=== PATIENT | male | born 1945 | race African-American/Black ===

== ENCOUNTER → 2017-03-02 | Outpatient (CLI) | payer MEDICARE, OTHER ==
--- NOTE | 2017-03-02 14:22 | RAD ---
APPROVED REPORT Test Type: Exercise Stress Nurse/Tech: Karly North R.N. Test Indications: Exertional dypsnea Cardiac History: HTN Medications: SEE EMR Medical History: SEE EMR Resting ECG: SR PVC's and PAC's Resting Heart Rate: 78 bpm Resting Blood Pressure: 135/72mmHg Pretest Chest Pain: No chest painNone Nurse/Tech Notes S1S2, lungs CTA, denied chest pain and SOA. Denied dizziness. Pt will attempt treadmill stress test d espite needing knee braces while exercising. Consent: The procedure was explained to the patient in lay terms. Informed consent was witnessed. Vahid eout was entered into [employer]. History and Stress Test performed by Karly North R.N. Stress Symptoms SOA. POST EXERCISE Reason for Termination: Reached target heart rate Target HR: Yes Max HR: 152 bpm 102% of Maximum Predicted HR: 148 bpm Exercise duration: 2:30 min:sec, 1 Stage Exercise capacity: 4.6METs Max Blood Pressure: 159/72mmHg Blood Pressure response to exercise: Normal blood pressure response during stress. Heart Rate response to exercise: Normal Chest Pain: No. Arrhythmia: Yes. PVC's and PAC's INTERPRETATION Stress EKG Conclusion: The baseline EKG shows a sinus rhythm with PACs and nonspecific ST segment med nges. The stress EKG shows no significant changes from baseline. No EKG evidence of stress-induced ischemia. Imaging Protocol IMAGE PROTOCOL: Rest Tc-99m/stress Tc-99m 1 day Rest: Stress: Viability: Radiopharm.Tc99m [id number] Sestamibi Dose10.1mCi 32i Img Date 03/02/2017 03/02/2017 Inj-Img [id number] 60min. Rest Admin Site:IV - Left AntecubitalAdministrator:LILLIAM Scott, ARRT (R)(N) Stress Admin Site: IV - Left AntecubitalAdministrator: Elidia Farnsworth, RT (R)(N) STRESS DATA End Diast. Vol.79.0mlAv. Heart Rate86.0bpm End Syst. Vol.23.0mlCO Index BSA0.0L/min Myocardial Whcd561.0gEject. Oqthvast88.0% Stress Rates Pk. Fill Rate3.16EDV/secLVtime Pk. Fill 146.17msec Pk. Empty Rate4.53ESV/secLVtime Pk. Giddn038.87msec 04/22 Pk. Fill1.65EDV/sec Stress Scores Regional WT0.00Summed WT5.00 Regional WM0.00Summed WM2.00 LV Perfusion The stress scans showed no significant defects. The rest scans showed no significant defects. Nuclear imaging shows no reversible ischemia or infarct. Wall Motion Normal left ventricular systolic function with an ejection fraction of greater than 70%. LV Perf. Quant 17 Seg. SSS3.00 17 Seg. SRS3.00 17 Seg. SDS0.00 Stress Defect Extent (% LAD)0.00Rest Defect Extent (% LAD)0.00Rev. Defect Extent (% LAD)0.00 Stress Defect Extent (% LCX) 21.30Rest Defect Extent (% LCX)20.00Rev. Defect Extent (% LCX)0.00 Stress Defect Extent (% RCA)0.00Rest Defect Extent (% RCA)3.30Rev. Defect Extent (% RCA)0.00 Stress Defect Extent (% JIHAN)5.20Rest Defect Extent (% JIHAN)6.50Rev. Defect Extent (% JIHAN)0.00 Conclusion 1. Fair exercise tolerance. 2. No chest pain with exertion. 3. No EKG evidence of stressed induced ischemia. 4. Nuclear imaging shows no reversible ischemia or infarct. 5. Normal left ventricular systolic function with an ejection fraction of greater than 70%. 6. Low risk treadmill nuclear stress test.
== END | disposition home or self-care (01) ==
LOC: NM 09:21
PROVIDERS: ATTEND Internal Medicine Cardiovascular Disease
DX: R06.00 Dyspnea, unspecified (principal)
CPT/HCPCS: 78452; 93017; 96374; 96376; A9500

== ENCOUNTER 2019-02-12 11:28 | Inpatient (IN) | payer MEDICARE, OTHER ==
[~2019-02-12] VITALS: Ht 167.6 cm; Wt 88.2 kg
--- NOTE | 2019-02-12 11:58 | PHYS DOC ---
Past Medical History Past Medical History: A-Fib, Diabetes-Type I, Hypertension Past Surgical History: Other Additional Past Surgical Histo: lower back Alcohol Use: None Drug Use: None Adult General Chief Complaint Chief Complaint: SYNCOPE HPI HPI 73-year-old male with underlying history of hypertension, atrial fibrillation, history of esophageal stricture presents to the emergency department after syncopal episode. Patient was at a and states he became hot and subsequently passed out, significant other at the bedside states is partly 1 minute. EMS was called however patient declined. He denies any chest pain, shortness breath, nausea, vomiting. States he's had a history of syncopal episodes in the past. Most recently he's had decreased oral intake over the last 3-4 weeks given concerns for esophageal stricture. Patient scheduled for evaluation per GI on Thursday. Nothing makes worse, nothing makes better. BS 140 Review of Systems Review of Systems Constitutional: Denies fever or chills [] Respiratory: Denies cough or shortness of breath [] Cardiovascular: No additional information not addressed in HPI [] GI: Denies abdominal pain, nausea, vomiting, bloody stools or diarrhea [] Musculoskeletal: Denies back pain or joint pain [] Integument: Denies rash or skin lesions [] Neurologic: Denies headache, focal weakness or sensory changes [] All other systems were reviewed and found to be within normal limits, except as documented in this note. Current Medications Current Medications Current Medications Medications (Trade) Dose Ordered Sig/Enrique Start Time Stop Time Status Last Admin Dose Admin Acetaminophen (Tylenol) 650 mg PRN Q4HRS PRN 02/12/19 13:15 02/13/19 13:14 Diltiazem HCl (Cardizem Iv Push) 10 mg 1X ONCE 02/12/19 12:00 02/12/19 12:01 DC 02/12/19 12:09 10 MG Info (CONTRAST GIVEN -- Rx MONITORING) 1 each PRN DAILY PRN 02/12/19 13:00 02/14/19 12:59 Iohexol (Omnipaque 350 Mg/ml) 90 ml 1X ONCE 02/12/19 13:00 02/12/19 13:01 DC 02/12/19 13:14 90 ML Ondansetron HCl (Zofran) 4 mg PRN Q8HRS PRN 02/12/19 13:15 02/13/19 13:14 Sodium Chloride 1,000 ml @ 1,000 mls/hr 1X ONCE 02/12/19 12:00 02/12/19 12:59 DC 02/12/19 12:10 1,000 MLS/HR Allergies Allergies Allergies Coded Allergies Type Severity Reaction Last Updated Verified No Known Drug Allergies 02/12/19 No Physical Exam Physical Exam Constitutional: Well developed, well nourished, no acute distress, non-toxic appearance. [] HENT: Normocephalic, atraumatic, bilateral external ears normal, oropharynx moist, no oral exudates, nose normal. [] Eyes: PERRLA, EOMI, conjunctiva normal, no discharge. [] Cardiovascular:Heart rate regular rhythm, no murmur [] Lungs & Thorax: Bilateral breath sounds clear to auscultation [] Abdomen: Bowel sounds normal, soft, no tenderness, no masses, no pulsatile masses. [] Skin: Warm, dry, no erythema, no rash. [] Extremities: No tenderness, no edema. [] Neurologic: Alert and oriented X 3, no focal deficits noted. [] Psychologic: Affect normal, judgement normal, mood normal. [] Current Patient Data Vital Signs Vital Signs Date Time Temp Pulse Resp B/P (MAP) Pulse Ox O2 Delivery O2 Flow Rate FiO2 02/12/19 12:09 138 150/67 02/12/19 12:00 18 96 Room Air 02/12/19 11:33 97.7 97.7 Lab Values Laboratory Tests Test 02/12/19 11:45 02/12/19 12:04 Glucose (Fingerstick) 144 mg/dL (70-99) H White Blood Count 19.6 x10^3/uL (4.0-11.0) H Red Blood Count 4.04 x10^6/uL (4.30-5.70) L Hemoglobin 12.3 g/dL (13.0-17.5) L Hematocrit 37.5 % (39.0-53.0) L Mean Corpuscular Volume 93 fL (79-100) Mean Corpuscular Hemoglobin 31 pg (25-35) Mean Corpuscular Hemoglobin Concent 33 g/dL (31-37) Red Cell Distribution Width 13.5 % (11.5-14.5) Platelet Count 455 x10^3/uL (140-400) H Neutrophils (%) (Auto) 86 % (31-73) H Lymphocytes (%) (Auto) 5 % (24-48) L Monocytes (%) (Auto) 8 % (0-9) Eosinophils (%) (Auto) 0 % (0-3) Basophils (%) (Auto) 1 % (0-3) Neutrophils # (Auto) 16.9 x10^3/uL (1.8-7.7) H Lymphocytes # (Auto) 0.9 x10^3/uL (1.0-4.8) L Monocytes # (Auto) 1.6 x10^3/uL (0.0-1.1) H Eosinophils # (Auto) 0.1 x10^3/uL (0.0-0.7) Basophils # (Auto) 0.1 x10^3/uL (0.0-0.2) Segmented Neutrophils % 63 % (35-66) Band Neutrophils % 9 % (0-9) Lymphocytes % 14 % (24-48) L Atypical Lymphocytes % (Manual) 3 % (0-0) H Monocytes % 9 % (0-10) Metamyelocytes % 1 % (0-0) H Myelocytes % 1 % (0-0) H Platelet Estimate Increased (ADEQUATE) Large Platelets Few Giant Platelets Occ Polychromasia Slight D-Dimer (Tamra) 3.80 ug/mlFEU (0.00-0.50) H Sodium Level 138 mmol/L (136-145) Potassium Level 5.2 mmol/L (3.5-5.1) H Chloride Level 103 mmol/L (98-107) Carbon Dioxide Level 24 mmol/L (21-32) Anion Gap 11 (6-14) Blood Urea Nitrogen 19 mg/dL (8-26) Creatinine 1.7 mg/dL (0.7-1.3) H Estimated GFR (Cockcroft-Gault) 47.9 BUN/Creatinine Ratio 11 (6-20) Glucose Level 157 mg/dL (70-99) H Calcium Level 9.2 mg/dL (8.5-10.1) Magnesium Level 1.9 mg/dL (1.8-2.4) Total Bilirubin 2.0 mg/dL (0.2-1.0) H Aspartate Amino Transferase (AST) 35 U/L (15-37) Alanine Aminotransferase (ALT) 29 U/L (16-63) Alkaline Phosphatase 96 U/L (46-116) Troponin I Quantitative < 0.017 ng/mL (0.000-0.055) Total Protein 8.1 g/dL (6.4-8.2) Albumin 2.6 g/dL (3.4-5.0) L Albumin/Globulin Ratio 0.5 (1.0-1.7) L Laboratory Tests 02/12/19 12:04 Laboratory Tests 02/12/19 12:04 EKG EKG EKG reviewed, atrial fibrillation with RVR, left axis deviation, no evidence of acute ST elevation VA appreciated, urgency EKG secondary to A. fib with RVR[] Interpretation Time: Interpretation time 1145 Radiology/Procedures Radiology/Procedures [facility] [address] [place] [address] IMAGING REPORT Signed PATIENT: SANDRO LOPEZ ACCOUNT: [id number] : 1945 LOCATION: ER AGE: 73 SEX: M EXAM STATUS: REG ER ORD. PHYSICIAN: MALIA RAIN MD REASON: elevated ddimer, syncope PROCEDURE: CT ANGIOGRAPHY CHEST EXAM: CT ANGIOGRAPHY OF THE CHEST WITH AND WITHOUT CONTRAST. HISTORY: Syncope, elevated d-dimer. TECHNIQUE: Computed tomographic angiography of the chest was performed before and after the intravenous administration of iodinated contrast. 3-D maximum intensity projections were also performed. COMPARISON: None. FINDINGS: Images of the upper abdomen reveal multiple ill-defined hypoattenuating lesions within the liver concerning for metastatic disease. The largest on image 105 measures 3.3 cm. There is a moderate hiatal hernia. A soft tissue mass invading into the adjacent fat is suspected along the right aspect of the gastroesophageal junction. Gastrohepatic lymph nodes measure up to 2.2 x 1.2 cm. Bone windows reveal no suspicious lesions. No pulmonary emboli are identified. There is no aortic dissection or aneurysm. There are no pathologically enlarged mediastinal or axillary lymph nodes. There is no pleural or pericardial effusion. The heart is not enlarged. There are atherosclerotic calcifications of the coronary arteries. Lung windows reveal no infiltrates. There is mild dependent atelectasis. IMPRESSION: 1. Findings concerning for a mass at the gastroesophageal junction with invasion of the right paraesophageal fat. 2. Extensive hepatic metastatic disease. 3. No pulmonary embolism. *One or more of the following individualized dose reduction techniques were utilized for this examination: 1. Automated exposure control. 2. Adjustment of the mA and/or kV according to patient size. 3. Use of iterative reconstruction technique. Electronically signed by: Sera Montesinos MD (02/12/2019 1:23 PM) [facility] DICTATED and SIGNED BY: BRIELLE MONTESINOS MD DATE: 02/12/19 1323 [] Course & Med Decision Making Course & Med Decision Making Pertinent Labs and Imaging studies reviewed. (See chart for details) []73-year-old male with underlying history of hypertension, atrial fibrillation, history of esophageal stricture presents to the emergency department after syncopal episode. Patient was at a and states he became hot and subsequently passed out, significant other at the bedside states is partly 1 minute. EMS was called however patient declined. He denies any chest pain, shortness breath, nausea, vomiting. States he's had a history of syncopal episodes in the past. Most recently he's had decreased oral intake over the last 3-4 weeks given concerns for esophageal stricture. Patient scheduled for evaluation per GI on Thursday. Nothing makes worse, nothing makes better. BS 140 Labs reviewed mild [place] creat 1.7 CT findings concerning for esophageal thickening and lesions on the liver - further GI consult placed Patient will be admitted for further syncope workup and Cardiology consult Afib with RVR - improved after 10mg IV cardizem Dragon Disclaimer Dragon Disclaimer This electronic medical record was generated, in whole or in part, using a voice recognition dictation system. Departure Departure Impression: Primary Impression: Syncope and collapse Additional Impressions: Atrial fibrillation with RVR Dysphagia Abnormal CT of the abdomen Disposition: ADMITTED INPATIENT Admitting Physician: Torin Coronado Condition: STABLE Referrals: García DOMINGUEZ MD (PCP) Problem Qualifiers Additional Impressions: Dysphagia Dysphagia type: unspecified Qualified Codes: R13.10 - Dysphagia, unspecified MALIA RAIN MD Feb 12, 2019 11:58
[2019-02-12] MEDS ORDERED: dilTIAZem IV PUSH 25 MG/5 ML VIAL IVP ONE (12:00)
[2019-02-12] MEDS ORDERED: IV NORMAL SALINE 1000ML BAG 1,000 ML IV ONE (12:00)
[2019-02-12 12:20] LABS: BASO # 0.1 x10^3/uL (0.0-0.2); BASO % 1 % (0-3); EOS # 0.1 x10^3/uL (0.0-0.7); EOS % 0 % (0-3); HEMATOCRIT 37.5 % (39.0-53.0); HEMOGLOBIN 12.3 g/dL (13.0-17.5); LYMPH # 0.9 x10^3/uL (1.0-4.8); LYMPH % 5 % (24-48); MEAN CORPUSCULAR HEMOGLOBIN 31 pg (25-35); MEAN CORPUSCULAR HGB CONC 33 g/dL (31-37); MEAN CORPUSCULAR VOLUME 93 fL (79-100); MONO # 1.6 x10^3/uL (0.0-1.1); MONO % 8 % (0-9); NEUT # 16.9 x10^3/uL (1.8-7.7); NEUT % 86 % (31-73); PLATELET COUNT 455 x10^3/uL (140-400); RED BLOOD COUNT 4.04 x10^6/uL (4.30-5.70); RED CELL DISTRIBUTION WIDTH 13.5 % (11.5-14.5); WHITE BLOOD COUNT 19.6 x10^3/uL (4.0-11.0)
[2019-02-12 12:33] LABS: ALBUMIN 2.6 g/dL (3.4-5.0); ALBUMIN/GLOBULIN RATIO 0.5 (1.0-1.7); CALCIUM 9.2 mg/dL (8.5-10.1); CREATININE 1.7 mg/dL (0.7-1.3); GFR 47.9; TOTAL PROTEIN 8.1 g/dL (6.4-8.2)
[2019-02-12 12:36] LABS: POTASSIUM 5.2 mmol/L (3.5-5.1)
[2019-02-12 12:48] LABS: % BANDS 9 % (0-9); % METAS 1 % (0-0); % MONOS 9 % (0-10)
[2019-02-12 12:49] LABS: PLT ESTIMATE INCREASED (ADEQUATE); POLYCHROMASIA SLIGHT
[2019-02-12 12:50] LABS: % ATYL 3 % (0-0); % LYMPHS 14 % (24-48); % MYELOS 1 % (0-0); % SEGS 63 % (35-66)
[2019-02-12] MEDS ORDERED: IOHEXOL 350 MG/ML 100 ML VIAL. IV ONE (13:00)
[2019-02-12] MEDS ORDERED: CONTRAST GIVEN. MC PRN (13:00)
[2019-02-12] MEDS ORDERED: ONDANSETRON PF 4 MG/2 ML VIAL. IV PRN (13:15)
[2019-02-12] MEDS ORDERED: ACETAMINOPHEN 325 MG TABLET. PO PRN (13:15)
--- NOTE | 2019-02-12 13:26 | RAD ---
EXAM: CT ANGIOGRAPHY OF THE CHEST WITH AND WITHOUT CONTRAST. HISTORY: Syncope, elevated d-dimer. TECHNIQUE: Computed tomographic angiography of the chest was performed before and after the intravenous administration of iodinated contrast. 3-D maximum intensity projections were also performed. COMPARISON: None. FINDINGS: Images of the upper abdomen reveal multiple ill-defined hypoattenuating lesions within the liver concerning for metastatic disease. The largest on image 105 measures 3.3 cm. There is a moderate hiatal hernia. A soft tissue mass invading into the adjacent fat is suspected along the right aspect of the gastroesophageal junction. Gastrohepatic lymph nodes measure up to 2.2 x 1.2 cm. Bone windows reveal no suspicious lesions. No pulmonary emboli are identified. There is no aortic dissection or aneurysm. There are no pathologically enlarged mediastinal or axillary lymph nodes. There is no pleural or pericardial effusion. The heart is not enlarged. There are atherosclerotic calcifications of the coronary arteries. Lung windows reveal no infiltrates. There is mild dependent atelectasis. IMPRESSION: 1. Findings concerning for a mass at the gastroesophageal junction with invasion of the right paraesophageal fat. 2. Extensive hepatic metastatic disease. 3. No pulmonary embolism. *One or more of the following individualized dose reduction techniques were utilized for this examination: 1. Automated exposure control. 2. Adjustment of the mA and/or kV according to patient size. 3. Use of iterative reconstruction technique. Electronically signed by: Sera Montesinos MD (02/12/2019 1:23 PM) [facility]
[2019-02-12 14:52] VITALS: BP 117/20
--- NOTE | 2019-02-12 15:10 | PDOC2 ---
CONSULT Date of Consult Date of Consult DATE: 02/12/19 TIME: 15:01 Reason for Consult Reason for Consult: Dysphagia, weight loss, abnormal CT scan Identification/Chief Complaint Chief Complaint Syncope, weight loss, dysphagia History of Present Illness Reason for Visit: This is a 73-year-old gentleman who was recently seen by my associate Dr. Francisco for dysphagia and weight loss and was actually scheduled for an elective endoscopy on Thursday. His history dates back for several months where he describes solid food dysphagia and weight loss. He has accommodated with use of soft foods and liquids but will occasionally have a solid food gets stuck and requires self-induced vomiting to relieve. He denies any hematemesis or melena. He denies any abdominal pain. He also had a syncopal episode sometime in the past but was not seen in the hospital or by his physician. He thought it was because it was hot and he had walked up a hill. He had a recurrence of syncope today at a and finally came to the emergency room where he was found to have atrial fibrillation, and elevated d-dimer and a CT scan of his chest revealed no evidence for pulmonary embolism but did reveal a mass in the GE junction and probable metastatic disease in his liver. Describes irregular bowel pattern without obvious bleeding. He denies a lot of complaints but his family relates that these had chronic pain in his shoulders and knees and has decreased his normal level of activity. Halie Nascimento does not eat breakfast but with his poor overall by mouth intake he has been losing weight and has been weak, according to the family. Past Medical History Cardiovascular: AFIB, HTN Musculoskeletal: Osteoarthritis Endocrine: Diabetes Current Problem List Problem List Problems Medical Problems: (1) Abnormal CT of the abdomen Status: Acute (2) Atrial fibrillation with RVR Status: Acute (3) Dysphagia Status: Acute (4) Syncope and collapse Status: Acute Current Medications Current Medications Current Medications Sodium Chloride 1,000 ml @ 1,000 mls/hr 1X ONCE IV Last administered on 02/12/19at 12:10; Start 02/12/19 at 12:00; Stop 02/12/19 at 12:59; Status DC Diltiazem HCl (Cardizem Iv Push) 10 mg 1X ONCE IVP Last administered on 02/12/19at 12:09; Start 02/12/19 at 12:00; Stop 02/12/19 at 12:01; Status DC Iohexol (Omnipaque 350 Mg/ml) 90 ml 1X ONCE IV Last administered on 02/12/19at 13:14; Start 02/12/19 at 13:00; Stop 02/12/19 at 13:01; Status DC Info (CONTRAST GIVEN -- Rx MONITORING) 1 each PRN DAILY PRN MC SEE COMMENTS; Start 02/12/19 at 13:00; Stop 02/14/19 at 12:59 Ondansetron HCl (Zofran) 4 mg PRN Q8HRS PRN IV NAUSEA/VOMITING; Start 02/12/19 at 13:15; Stop 02/13/19 at 13:14 Acetaminophen (Tylenol) 650 mg PRN Q4HRS PRN PO FEVER; Start 02/12/19 at 13:15; Stop 02/13/19 at 13:14 Allergies Allergies: Coded Allergies: No Known Drug Allergies (Unverified , 02/12/19) Physical Exam General: Alert, Oriented X3, Cooperative HEENT: Atraumatic, PERRLA, Other (neck is supple without adenopathy) Lungs: Clear to auscultation Heart: Normal S1, Normal S2, Other (irregular) Abdomen: Normal bowel sounds, Soft, No tenderness, No hepatosplenomegaly Extremities: No clubbing, No cyanosis Neuro: Normal gait, Normal speech Psych/Mental Status: Mental status NL Vitals VITALS Vital Signs Date Time Temp Pulse Resp B/P (MAP) Pulse Ox O2 Delivery O2 Flow Rate FiO2 02/12/19 14:52 97.4 82 18 117/20 (52) 97 Room Air 97.4 Labs Labs Laboratory Tests Test 02/12/19 11:45 02/12/19 12:04 Glucose (Fingerstick) 144 mg/dL (70-99) White Blood Count 19.6 x10^3/uL (4.0-11.0) Red Blood Count 4.04 x10^6/uL (4.30-5.70) Hemoglobin 12.3 g/dL (13.0-17.5) Hematocrit 37.5 % (39.0-53.0) Mean Corpuscular Volume 93 fL (79-100) Mean Corpuscular Hemoglobin 31 pg (25-35) Mean Corpuscular Hemoglobin Concent 33 g/dL (31-37) Red Cell Distribution Width 13.5 % (11.5-14.5) Platelet Count 455 x10^3/uL (140-400) Neutrophils (%) (Auto) 86 % (31-73) Lymphocytes (%) (Auto) 5 % (24-48) Monocytes (%) (Auto) 8 % (0-9) Eosinophils (%) (Auto) 0 % (0-3) Basophils (%) (Auto) 1 % (0-3) Neutrophils # (Auto) 16.9 x10^3/uL (1.8-7.7) Lymphocytes # (Auto) 0.9 x10^3/uL (1.0-4.8) Monocytes # (Auto) 1.6 x10^3/uL (0.0-1.1) Eosinophils # (Auto) 0.1 x10^3/uL (0.0-0.7) Basophils # (Auto) 0.1 x10^3/uL (0.0-0.2) Segmented Neutrophils % 63 % (35-66) Band Neutrophils % 9 % (0-9) Lymphocytes % 14 % (24-48) Atypical Lymphocytes % (Manual) 3 % (0-0) Monocytes % 9 % (0-10) Metamyelocytes % 1 % (0-0) Myelocytes % 1 % (0-0) Platelet Estimate Increased (ADEQUATE) Large Platelets Few Giant Platelets Occ Polychromasia Slight D-Dimer (Tamra) 3.80 ug/mlFEU (0.00-0.50) Sodium Level 138 mmol/L (136-145) Potassium Level 5.2 mmol/L (3.5-5.1) Chloride Level 103 mmol/L (98-107) Carbon Dioxide Level 24 mmol/L (21-32) Anion Gap 11 (6-14) Blood Urea Nitrogen 19 mg/dL (8-26) Creatinine 1.7 mg/dL (0.7-1.3) Estimated GFR (Cockcroft-Gault) 47.9 BUN/Creatinine Ratio 11 (6-20) Glucose Level 157 mg/dL (70-99) Calcium Level 9.2 mg/dL (8.5-10.1) Magnesium Level 1.9 mg/dL (1.8-2.4) Total Bilirubin 2.0 mg/dL (0.2-1.0) Aspartate Amino Transf (AST/SGOT) 35 U/L (15-37) Alanine Aminotransferase (ALT/SGPT) 29 U/L (16-63) Alkaline Phosphatase 96 U/L (46-116) Troponin I Quantitative < 0.017 ng/mL (0.000-0.055) Total Protein 8.1 g/dL (6.4-8.2) Albumin 2.6 g/dL (3.4-5.0) Albumin/Globulin Ratio 0.5 (1.0-1.7) Laboratory Tests Test 02/12/19 11:45 02/12/19 12:04 Glucose (Fingerstick) 144 mg/dL (70-99) White Blood Count 19.6 x10^3/uL (4.0-11.0) Red Blood Count 4.04 x10^6/uL (4.30-5.70) Hemoglobin 12.3 g/dL (13.0-17.5) Hematocrit 37.5 % (39.0-53.0) Mean Corpuscular Volume 93 fL (79-100) Mean Corpuscular Hemoglobin 31 pg (25-35) Mean Corpuscular Hemoglobin Concent 33 g/dL (31-37) Red Cell Distribution Width 13.5 % (11.5-14.5) Platelet Count 455 x10^3/uL (140-400) Neutrophils (%) (Auto) 86 % (31-73) Lymphocytes (%) (Auto) 5 % (24-48) Monocytes (%) (Auto) 8 % (0-9) Eosinophils (%) (Auto) 0 % (0-3) Basophils (%) (Auto) 1 % (0-3) Neutrophils # (Auto) 16.9 x10^3/uL (1.8-7.7) Lymphocytes # (Auto) 0.9 x10^3/uL (1.0-4.8) Monocytes # (Auto) 1.6 x10^3/uL (0.0-1.1) Eosinophils # (Auto) 0.1 x10^3/uL (0.0-0.7) Basophils # (Auto) 0.1 x10^3/uL (0.0-0.2) Segmented Neutrophils % 63 % (35-66) Band Neutrophils % 9 % (0-9) Lymphocytes % 14 % (24-48) Atypical Lymphocytes % (Manual) 3 % (0-0) Monocytes % 9 % (0-10) Metamyelocytes % 1 % (0-0) Myelocytes % 1 % (0-0) Platelet Estimate Increased (ADEQUATE) Large Platelets Few Giant Platelets Occ Polychromasia Slight D-Dimer (Tamra) 3.80 ug/mlFEU (0.00-0.50) Sodium Level 138 mmol/L (136-145) Potassium Level 5.2 mmol/L (3.5-5.1) Chloride Level 103 mmol/L (98-107) Carbon Dioxide Level 24 mmol/L (21-32) Anion Gap 11 (6-14) Blood Urea Nitrogen 19 mg/dL (8-26) Creatinine 1.7 mg/dL (0.7-1.3) Estimated GFR (Cockcroft-Gault) 47.9 BUN/Creatinine Ratio 11 (6-20) Glucose Level 157 mg/dL (70-99) Calcium Level 9.2 mg/dL (8.5-10.1) Magnesium Level 1.9 mg/dL (1.8-2.4) Total Bilirubin 2.0 mg/dL (0.2-1.0) Aspartate Amino Transf (AST/SGOT) 35 U/L (15-37) Alanine Aminotransferase (ALT/SGPT) 29 U/L (16-63) Alkaline Phosphatase 96 U/L (46-116) Troponin I Quantitative < 0.017 ng/mL (0.000-0.055) Total Protein 8.1 g/dL (6.4-8.2) Albumin 2.6 g/dL (3.4-5.0) Albumin/Globulin Ratio 0.5 (1.0-1.7) Images Images CT of the chest: No evidence for pulmonary emboli but likely metastatic disease in the liver and a thickening or mass at the GE junction Assessment/Plan Assessment/Plan Chronic dysphagia with weight loss. CT scan now reveals probable GE junction mass or thickening and associated lesions in the liver that are suspicious for metastatic disease. This is all very suggestive of esophageal cancer although other underlying neoplasia should be considered. Abnormal CT with possible GE junction thickening or mass and liver lesions suggestive of metastatic disease Arthritis in his shoulders and knees Recent syncope and apparent new onset atrial fibrillation Plan: Clear liquid diet as tolerated Monitor labs Dr. Francisco will see him on Thursday and likely plan endoscopy on Thursday for biopsy/tissue MONICA MCBRIDE MD Feb 12, 2019 15:10
[2019-02-12] MEDS ORDERED: AMLO10TA8 PO (18:47)
[2019-02-12] MEDS ORDERED: METF500T16 PO (18:47)
[2019-02-12] MEDS ORDERED: OMEP20CA10 PO (18:47)
[2019-02-12] MEDS ORDERED: LOSA50TA15 PO (18:47)
[2019-02-12] MEDS ORDERED: DOXA4TAB3 PO (18:47)
[2019-02-12] MEDS ORDERED: ATOR20TA58 PO (18:47)
[2019-02-12] MEDS ORDERED: INSU100I32 SQ (18:47)
[2019-02-12 19:00] VITALS: BP 131/86
[2019-02-12 23:00] VITALS: BP 169/80
[2019-02-13 03:00] VITALS: BP 138/71
[2019-02-13 07:20] VITALS: BP 119/72
[2019-02-13 07:52] LABS: BASO % 0 % (0-3); EOS # 0.1 x10^3/uL (0.0-0.7); EOS % 0 % (0-3); HEMATOCRIT 32.7 % (39.0-53.0); HEMOGLOBIN 10.9 g/dL (13.0-17.5); LYMPH # 1.4 x10^3/uL (1.0-4.8); LYMPH % 9 % (24-48); MEAN CORPUSCULAR HEMOGLOBIN 31 pg (25-35); MEAN CORPUSCULAR HGB CONC 33 g/dL (31-37); MEAN CORPUSCULAR VOLUME 92 fL (79-100); MONO # 1.3 x10^3/uL (0.0-1.1); MONO % 8 % (0-9); NEUT % 83 % (31-73); PLATELET COUNT 436 x10^3/uL (140-400); RED BLOOD COUNT 3.55 x10^6/uL (4.30-5.70); WHITE BLOOD COUNT 16.9 x10^3/uL (4.0-11.0)
[2019-02-13 08:18] LABS: ALBUMIN 2.3 g/dL (3.4-5.0); ALBUMIN/GLOBULIN RATIO 0.5 (1.0-1.7); CALCIUM 8.5 mg/dL (8.5-10.1); CREATININE 1.4 mg/dL (0.7-1.3); GFR 59.9; TOTAL BILIRUBIN 1.3 mg/dL (0.2-1.0); TOTAL PROTEIN 7.1 g/dL (6.4-8.2)
[2019-02-13] MEDS ORDERED: DOXAZOSIN MESYLATE 4 MG TABLET. PO SCH (09:00)
[2019-02-13] MEDS ORDERED: amLODIPine BESYLATE 10 MG TABLET PO SCH (10:30)
--- NOTE | 2019-02-13 11:08 | HP ---
ADMIT DATE: 02/12/2019 CHIEF COMPLAINT: Syncope. HISTORY OF PRESENT ILLNESS AND HOSPITAL COURSE: This patient is a 73-year-old -[place] male who was at a , felt lightheaded, and had an episode of syncope. EMS was called. The patient refused EMS transfer and transferred himself with his driving to the Emergency Room. He was evaluated and found to have atrial fibrillation. The patient states he has had irregular heartbeats his whole life, but has never had a documented treatment diagnosis of atrial fibrillation. Therefore, this was new onset atrial fibrillation with rapid ventricular response. The patient's most significant complaint in the last several months has been dysphagia, inability to swallow due to esophageal stricture. He had a previous dilatation in 2004, but has not sought medical attention for this until recently. He was scheduled for endoscopy on 02/14/2019. During ER workup, he was found to have a positive D-dimer; therefore, he had a CTA to rule out pulmonary embolus. That imaging study showed evidence of an esophageal mass with extensive liver metastasis. Due to these findings of new onset atrial fibrillation with rapid ventricular response, the patient was admitted to the hospital for further evaluation and workup. The patient did have leukocytosis as well. PAST MEDICAL HISTORY: Significant for: 1. Hypertension. 2. Gastroesophageal reflux disease with esophageal stricture, chronically. 3. Chronic kidney disease with baseline creatinine of 1.5. 4. Hyperlipidemia. 5. Benign prostatic hypertrophy. 6. History of embolic stroke. 7. Left eye blindness. 8. Type 2 diabetes. PAST SURGICAL HISTORY: Significant for lumbar laminectomy in , anterior cervical diskectomy in 1987. FAMILY HISTORY: Noncontributory. SOCIAL HISTORY: The patient does not smoke. He does not use alcohol. The patient is listed as single. ALLERGIES: THE PATIENT EXHIBITS ALLERGIES TO EFREM INHIBITORS WITH UNKNOWN REACTION. REVIEW OF SYSTEMS: The patient has had a 14-pound weight loss documented in the office. The patient has a 6-pound weight loss in the last week. The patient has not been able to eat solid foods for several weeks up to a month with significant difficulty swallowing. The patient denies any night sweats, cough, congestion, or diarrhea. PHYSICAL EXAMINATION: GENERAL: Well-nourished, well-developed -[place] male, in no apparent distress. On my exam, he is alert and oriented x 3. HEENT: Benign. NECK: Supple. CARDIAC: Regular rate and rhythm. LUNGS: Clear. ABDOMEN: Soft, nontender. EXTREMITIES: With 2+ pulses without edema. NEUROLOGIC: Showed no unilateral findings. ASSESSMENT: 1. 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 2. New-onset atrial fibrillation with rapid ventricular response. 3. Syncope, possibly vasovagal. 4. Type 2 diabetes. 5. Hypertension. 6. Chronic kidney disease, stable. PLAN: To proceed with cardiology evaluation and GI evaluation. Monitor the patient's diet. Decrease diet to clear liquids, moved to full liquids and advance as tolerated. Continue chronic care. SCAR OWEN MD DR: ALYSSA/silverio JOB#: [id number] / [id number]
[2019-02-13 11:30] VITALS: BP 114/61
[2019-02-13] MEDS: LOSARTAN POTASSIUM 50 MG TABLET. PO SCH (12:02)
[2019-02-13] MEDS: PANTOPRAZOLE 40 MG TABLET.DR. PO SCH (12:03)
--- NOTE | 2019-02-13 12:20 | PDOC2 ---
CONSULT Date of Consult Date of Consult DATE: 02/13/19 TIME: 12:19 Reason for Consult Reason for Consult: Syncope Referring Physician Referring Physician: Dr. Coronado Identification/Chief Complaint Chief Complaint Syncope Source Source: Chart review, Patient History of Present Illness Reason for Visit: 73-year-old male with previous history of paroxysmal atrial fibrillation seen by Dr. Hilton several years ago was apparently at a when he felt lightheaded and had an episode of suha syncope. He was found to be in atrial fibrillation by EMS but is presently back in sinus rhythm. Patient denied any chest pain, orthopnea/PND, palpitations. He stated that he has had 2 more episodes of syncope in the last few years. His d-dimer was elevated and hence he underwent CTA that did not show pulmonary embolus but suggested esophageal cancer. Past Medical History Cardiovascular: AFIB, HTN Musculoskeletal: Osteoarthritis Endocrine: Diabetes Current Problem List Problem List Problems Medical Problems: (1) Abnormal CT of the abdomen Status: Acute (2) Atrial fibrillation with RVR Status: Acute (3) Dysphagia Status: Acute (4) Syncope and collapse Status: Acute Current Medications Current Medications Current Medications Sodium Chloride 1,000 ml @ 1,000 mls/hr 1X ONCE IV Last administered on 02/12/19at 12:10; Start 02/12/19 at 12:00; Stop 02/12/19 at 12:59; Status DC Diltiazem HCl (Cardizem Iv Push) 10 mg 1X ONCE IVP Last administered on 02/12/19at 12:09; Start 02/12/19 at 12:00; Stop 02/12/19 at 12:01; Status DC Iohexol (Omnipaque 350 Mg/ml) 90 ml 1X ONCE IV Last administered on 02/12/19at 13:14; Start 02/12/19 at 13:00; Stop 02/12/19 at 13:01; Status DC Info (CONTRAST GIVEN -- Rx MONITORING) 1 each PRN DAILY PRN MC SEE COMMENTS; Start 02/12/19 at 13:00; Stop 02/14/19 at 12:59 Ondansetron HCl (Zofran) 4 mg PRN Q8HRS PRN IV NAUSEA/VOMITING; Start 02/12/19 at 13:15; Stop 02/13/19 at 13:14 Acetaminophen (Tylenol) 650 mg PRN Q4HRS PRN PO FEVER; Start 02/12/19 at 13:15; Stop 02/13/19 at 13:14 Doxazosin Mesylate (Cardura) 4 mg DAILY PO Last administered on 02/13/19at 09:33; Start 02/13/19 at 09:00 Amlodipine Besylate (Norvasc) 10 mg DAILY PO Last administered on 02/13/19at 12:02; Start 02/13/19 at 10:30 Doxazosin Mesylate (Cardura) 4 mg DAILY PO ; Start 02/14/19 at 09:00; Status UNV Losartan Potassium (Cozaar) 50 mg DAILY PO Last administered on 02/13/19at 12:02; Start 02/13/19 at 10:30 Metformin HCl (Glucophage) 500 mg DAILY PO ; Start 02/15/19 at 09:00 Insulin Glargine (Lantus Syringe) 12 unit QHS SQ ; Start 02/13/19 at 21:00 Pantoprazole Sodium (Protonix) 40 mg DAILYAC PO Last administered on 02/13/19at 12:03; Start 02/13/19 at 10:30 Active Scripts Active Reported Doxazosin Mesylate 4 Mg Tablet 4 Mg PO DAILY Basaglar Kwikpen U-100 (Insulin Glargine,Hum.rec.anlog) 100 Unit/1 Ml Insuln.pen 12 Units SQ HS Losartan Potassium 50 Mg Tablet 50 Mg PO DAILY Metformin Hcl 500 Mg Tablet 500 Mg PO DAILY Amlodipine Besylate 10 Mg Tablet 10 Mg PO DAILY Omeprazole 20 Mg Capsule.dr 20 Mg PO DAILY Atorvastatin Calcium 20 Mg Tablet 20 Mg PO HS Allergies Allergies: Coded Allergies: No Known Drug Allergies (Unverified , 02/12/19) ROS PSYCHOLOGICAL ROS: No: Hallucinations Eyes: No Loss of vision HEENT: No: Epistaxis Respiratory: No: Hemoptysis, Shortness of breath Cardiovascular: No Chest Pain Gastrointestinal: Yes Other (dysphagia); No Vomiting Genitourinary: No Hematuria Neurological: Yes Other (loss of consciousness); No Seizures Skin: No Rash Physical Exam General: Alert, Oriented X3 HEENT: Atraumatic, PERRLA Lungs: Clear to auscultation Heart: Regular rate Abdomen: Soft, No tenderness Extremities: No edema Psych/Mental Status: Mood NL Vitals VITALS Vital Signs Date Time Temp Pulse Resp B/P (MAP) Pulse Ox O2 Delivery O2 Flow Rate FiO2 02/13/19 12:02 82 114/61 02/13/19 11:30 98.2 19 96 Room Air 98.2 Labs Labs Laboratory Tests Test 02/12/19 11:45 02/12/19 12:04 02/12/19 17:03 02/13/19 06:50 Glucose (Fingerstick) 144 mg/dL (70-99) 121 mg/dL (70-99) White Blood Count 19.6 x10^3/uL (4.0-11.0) 16.9 x10^3/uL (4.0-11.0) Red Blood Count 4.04 x10^6/uL (4.30-5.70) 3.55 x10^6/uL (4.30-5.70) Hemoglobin 12.3 g/dL (13.0-17.5) 10.9 g/dL (13.0-17.5) Hematocrit 37.5 % (39.0-53.0) 32.7 % (39.0-53.0) Mean Corpuscular Volume 93 fL (79-100) 92 fL (79-100) Mean Corpuscular Hemoglobin 31 pg (25-35) 31 pg (25-35) Mean Corpuscular Hemoglobin Concent 33 g/dL (31-37) 33 g/dL (31-37) Red Cell Distribution Width 13.5 % (11.5-14.5) 13.0 % (11.5-14.5) Platelet Count 455 x10^3/uL (140-400) 436 x10^3/uL (140-400) Neutrophils (%) (Auto) 86 % (31-73) 83 % (31-73) Lymphocytes (%) (Auto) 5 % (24-48) 9 % (24-48) Monocytes (%) (Auto) 8 % (0-9) 8 % (0-9) Eosinophils (%) (Auto) 0 % (0-3) 0 % (0-3) Basophils (%) (Auto) 1 % (0-3) 0 % (0-3) Neutrophils # (Auto) 16.9 x10^3/uL (1.8-7.7) 14.0 x10^3/uL (1.8-7.7) Lymphocytes # (Auto) 0.9 x10^3/uL (1.0-4.8) 1.4 x10^3/uL (1.0-4.8) Monocytes # (Auto) 1.6 x10^3/uL (0.0-1.1) 1.3 x10^3/uL (0.0-1.1) Eosinophils # (Auto) 0.1 x10^3/uL (0.0-0.7) 0.1 x10^3/uL (0.0-0.7) Basophils # (Auto) 0.1 x10^3/uL (0.0-0.2) 0.0 x10^3/uL (0.0-0.2) Segmented Neutrophils % 63 % (35-66) Band Neutrophils % 9 % (0-9) Lymphocytes % 14 % (24-48) Atypical Lymphocytes % (Manual) 3 % (0-0) Monocytes % 9 % (0-10) Metamyelocytes % 1 % (0-0) Myelocytes % 1 % (0-0) Platelet Estimate Increased (ADEQUATE) Large Platelets Few Giant Platelets Occ Polychromasia Slight D-Dimer (Tamra) 3.80 ug/mlFEU (0.00-0.50) Sodium Level 138 mmol/L (136-145) 141 mmol/L (136-145) Potassium Level 5.2 mmol/L (3.5-5.1) 4.0 mmol/L (3.5-5.1) Chloride Level 103 mmol/L (98-107) 105 mmol/L (98-107) Carbon Dioxide Level 24 mmol/L (21-32) 24 mmol/L (21-32) Anion Gap 11 (6-14) 12 (6-14) Blood Urea Nitrogen 19 mg/dL (8-26) 14 mg/dL (8-26) Creatinine 1.7 mg/dL (0.7-1.3) 1.4 mg/dL (0.7-1.3) Estimated GFR (Cockcroft-Gault) 47.9 59.9 BUN/Creatinine Ratio 11 (6-20) 10 (6-20) Glucose Level 157 mg/dL (70-99) 116 mg/dL (70-99) Calcium Level 9.2 mg/dL (8.5-10.1) 8.5 mg/dL (8.5-10.1) Magnesium Level 1.9 mg/dL (1.8-2.4) Total Bilirubin 2.0 mg/dL (0.2-1.0) 1.3 mg/dL (0.2-1.0) Aspartate Amino Transf (AST/SGOT) 35 U/L (15-37) 24 U/L (15-37) Alanine Aminotransferase (ALT/SGPT) 29 U/L (16-63) 21 U/L (16-63) Alkaline Phosphatase 96 U/L (46-116) 96 U/L (46-116) Troponin I Quantitative < 0.017 ng/mL (0.000-0.055) Total Protein 8.1 g/dL (6.4-8.2) 7.1 g/dL (6.4-8.2) Albumin 2.6 g/dL (3.4-5.0) 2.3 g/dL (3.4-5.0) Albumin/Globulin Ratio 0.5 (1.0-1.7) 0.5 (1.0-1.7) Test 02/13/19 07:21 02/13/19 11:55 Glucose (Fingerstick) 130 mg/dL (70-99) 115 mg/dL (70-99) Laboratory Tests Test 02/12/19 17:03 02/13/19 06:50 02/13/19 07:21 02/13/19 11:55 Glucose (Fingerstick) 121 mg/dL (70-99) 130 mg/dL (70-99) 115 mg/dL (70-99) White Blood Count 16.9 x10^3/uL (4.0-11.0) Red Blood Count 3.55 x10^6/uL (4.30-5.70) Hemoglobin 10.9 g/dL (13.0-17.5) Hematocrit 32.7 % (39.0-53.0) Mean Corpuscular Volume 92 fL (79-100) Mean Corpuscular Hemoglobin 31 pg (25-35) Mean Corpuscular Hemoglobin Concent 33 g/dL (31-37) Red Cell Distribution Width 13.0 % (11.5-14.5) Platelet Count 436 x10^3/uL (140-400) Neutrophils (%) (Auto) 83 % (31-73) Lymphocytes (%) (Auto) 9 % (24-48) Monocytes (%) (Auto) 8 % (0-9) Eosinophils (%) (Auto) 0 % (0-3) Basophils (%) (Auto) 0 % (0-3) Neutrophils # (Auto) 14.0 x10^3/uL (1.8-7.7) Lymphocytes # (Auto) 1.4 x10^3/uL (1.0-4.8) Monocytes # (Auto) 1.3 x10^3/uL (0.0-1.1) Eosinophils # (Auto) 0.1 x10^3/uL (0.0-0.7) Basophils # (Auto) 0.0 x10^3/uL (0.0-0.2) Sodium Level 141 mmol/L (136-145) Potassium Level 4.0 mmol/L (3.5-5.1) Chloride Level 105 mmol/L (98-107) Carbon Dioxide Level 24 mmol/L (21-32) Anion Gap 12 (6-14) Blood Urea Nitrogen 14 mg/dL (8-26) Creatinine 1.4 mg/dL (0.7-1.3) Estimated GFR (Cockcroft-Gault) 59.9 BUN/Creatinine Ratio 10 (6-20) Glucose Level 116 mg/dL (70-99) Calcium Level 8.5 mg/dL (8.5-10.1) Total Bilirubin 1.3 mg/dL (0.2-1.0) Aspartate Amino Transf (AST/SGOT) 24 U/L (15-37) Alanine Aminotransferase (ALT/SGPT) 21 U/L (16-63) Alkaline Phosphatase 96 U/L (46-116) Total Protein 7.1 g/dL (6.4-8.2) Albumin 2.3 g/dL (3.4-5.0) Albumin/Globulin Ratio 0.5 (1.0-1.7) Assessment/Plan Assessment/Plan 1. Paroxysmal atrial fibrillation. Patient is presently back in sinus rhythm. Telemetry showed few very brief episodes of atrial fibrillation. Start beta blockers. He will benefit from long-term anticoagulation - we will consider this after workup for esophageal cancer (EGD etc) is completed. Check 2-D echo to assess LV systolic function. 2. Hypertension: Controlled 3. Hyperlipidemia: Statins 4. Diabetes mellitus type 2: Treat per IM 5. Possible esophageal cancer: Gastroenterology team planning EGD Thank you for your consultation SUNITHA FRANCIS MD Feb 13, 2019 12:20
--- NOTE | 2019-02-13 12:35 | PDOC ---
GI PROGRESS NOTES Date Date/Time DATE: 02/13/19 TIME: 12:34 Subjective Subjective Feeling well, sitting up and trying a full liquid diet Objective Vitals Vital Signs Date Time Temp Pulse Resp B/P (MAP) Pulse Ox O2 Delivery O2 Flow Rate FiO2 02/13/19 12:02 82 114/61 02/13/19 12:02 80 114/61 02/13/19 11:30 98.2 80 19 114/61 (78) 96 Room Air 98.2 02/13/19 09:33 78 119/72 02/13/19 08:00 Room Air 02/13/19 07:20 98.4 78 19 119/72 (88) 96 Room Air 98.4 02/13/19 03:00 99.5 82 16 138/71 (93) 94 Room Air 99.5 02/12/19 23:00 99.6 87 18 169/80 (109) 97 Room Air 99.6 02/12/19 20:00 Room Air 02/12/19 19:37 Room Air 02/12/19 19:00 97.9 75 20 131/86 (101) 96 Room Air 97.9 02/12/19 14:52 97.4 82 18 117/20 (52) 97 Room Air 97.4 02/12/19 14:00 68 18 137/94 (108) 96 Room Air 02/12/19 13:30 68 18 146/83 (104) 96 Room Air Labs Labs Laboratory Tests Test 02/12/19 17:03 02/13/19 06:50 02/13/19 07:21 02/13/19 11:55 Glucose (Fingerstick) 121 mg/dL (70-99) 130 mg/dL (70-99) 115 mg/dL (70-99) White Blood Count 16.9 x10^3/uL (4.0-11.0) Red Blood Count 3.55 x10^6/uL (4.30-5.70) Hemoglobin 10.9 g/dL (13.0-17.5) Hematocrit 32.7 % (39.0-53.0) Mean Corpuscular Volume 92 fL (79-100) Mean Corpuscular Hemoglobin 31 pg (25-35) Mean Corpuscular Hemoglobin Concent 33 g/dL (31-37) Red Cell Distribution Width 13.0 % (11.5-14.5) Platelet Count 436 x10^3/uL (140-400) Neutrophils (%) (Auto) 83 % (31-73) Lymphocytes (%) (Auto) 9 % (24-48) Monocytes (%) (Auto) 8 % (0-9) Eosinophils (%) (Auto) 0 % (0-3) Basophils (%) (Auto) 0 % (0-3) Neutrophils # (Auto) 14.0 x10^3/uL (1.8-7.7) Lymphocytes # (Auto) 1.4 x10^3/uL (1.0-4.8) Monocytes # (Auto) 1.3 x10^3/uL (0.0-1.1) Eosinophils # (Auto) 0.1 x10^3/uL (0.0-0.7) Basophils # (Auto) 0.0 x10^3/uL (0.0-0.2) Sodium Level 141 mmol/L (136-145) Potassium Level 4.0 mmol/L (3.5-5.1) Chloride Level 105 mmol/L (98-107) Carbon Dioxide Level 24 mmol/L (21-32) Anion Gap 12 (6-14) Blood Urea Nitrogen 14 mg/dL (8-26) Creatinine 1.4 mg/dL (0.7-1.3) Estimated GFR (Cockcroft-Gault) 59.9 BUN/Creatinine Ratio 10 (6-20) Glucose Level 116 mg/dL (70-99) Calcium Level 8.5 mg/dL (8.5-10.1) Total Bilirubin 1.3 mg/dL (0.2-1.0) Aspartate Amino Transf (AST/SGOT) 24 U/L (15-37) Alanine Aminotransferase (ALT/SGPT) 21 U/L (16-63) Alkaline Phosphatase 96 U/L (46-116) Total Protein 7.1 g/dL (6.4-8.2) Albumin 2.3 g/dL (3.4-5.0) Albumin/Globulin Ratio 0.5 (1.0-1.7) Physical Exam Physical Exam Awake and alert Chest clear Abdomen soft nontender obvious masses Assessment Assessment Dysphagia with likely esophageal mass or stricture. Must consider esophageal cancer. Metastatic appearing lesions in the liver. Plan Plan Full liquid diet as tolerated Plan EGD with biopsy tomorrow with MONICA El MD Feb 13, 2019 12:35
--- NOTE | 2019-02-13 13:40 | EKG ---
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
[2019-02-13 15:00] VITALS: BP 138/68
--- NOTE | 2019-02-13 18:04 | NUR ---
Patient denies wanting to take anything for his temperature this evening. pt states that he runs a fever every night and always has. Eduated pt and family.
[2019-02-13 19:00] VITALS: BP 104/46
[2019-02-13] MEDS: INSULIN GLARGINE SYRINGE. SQ SCH (21:00)
[2019-02-13] MEDS: METOPROLOL TART IMMED RELEASE 25 MG TABLET. PO SCH (21:19)
[2019-02-14] VITALS (16 sets, daily range): BP systolic 75–135; BP diastolic 47–71
[2019-02-14 04:19] LABS: BASO # 0.1 x10^3/uL (0.0-0.2); BASO % 1 % (0-3); EOS # 0.1 x10^3/uL (0.0-0.7); EOS % 1 % (0-3); HEMATOCRIT 33.8 % (39.0-53.0); HEMOGLOBIN 11.1 g/dL (13.0-17.5); LYMPH # 1.3 x10^3/uL (1.0-4.8); LYMPH % 8 % (24-48); MEAN CORPUSCULAR HEMOGLOBIN 30 pg (25-35); MEAN CORPUSCULAR HGB CONC 33 g/dL (31-37); MEAN CORPUSCULAR VOLUME 92 fL (79-100); MONO # 1.5 x10^3/uL (0.0-1.1); MONO % 9 % (0-9); NEUT # 13.4 x10^3/uL (1.8-7.7); NEUT % 82 % (31-73); PLATELET COUNT 423 x10^3/uL (140-400); RED BLOOD COUNT 3.66 x10^6/uL (4.30-5.70); RED CELL DISTRIBUTION WIDTH 13.2 % (11.5-14.5); WHITE BLOOD COUNT 16.3 x10^3/uL (4.0-11.0)
[2019-02-14 05:00] LABS: ALBUMIN 2.2 g/dL (3.4-5.0); ALBUMIN/GLOBULIN RATIO 0.5 (1.0-1.7); CALCIUM 8.6 mg/dL (8.5-10.1); CREATININE 1.3 mg/dL (0.7-1.3); GFR 65.3; TOTAL BILIRUBIN 1.6 mg/dL (0.2-1.0)
--- NOTE | 2019-02-14 08:10 | NUR ---
Patient's BP low this morning at 80/48 at 0810 with HR in 110's. AM BP meds held at this time. Will recheck & continue to monitor.
[2019-02-14] MEDS: PANTOPRAZOLE 40 MG TABLET.DR. PO SCH (08:13)
--- NOTE | 2019-02-14 08:51 | PDOC ---
PROGRESS NOTES Subjective Denies pain, poor appetite, feels tired but slept well enough Objective General: A&O, good spirits, NAD ENT: no icterus Heart: irreg rate about 100 Lungs: CTA Abd: soft and non tender Ext: no C/C/E [place]: good turgor, no jaundice WBC: 16.3 Hgb: 11.1 K+: 4.0 Creat: 1.3 Vital Signs Vital Signs Date Time Temp Pulse Resp B/P (MAP) Pulse Ox O2 Delivery O2 Flow Rate FiO2 02/14/19 07:00 99.0 112 20 86/52 (63) 97 Room Air 99.0 I & O Intake and Output 02/14/19 07:00 Intake Total 405 ml Balance 405 ml Intake Oral 405 ml # Voids 4 Assessment and Plan New onset Afib/RVR - now on metoprolol, echo ordered, cardiology following - anticoagulation pending studies esophageal mass - likely ca - EGD today liver lesions - likely mets - oncology consult - CT abd/pelvis leukocytosis, Elevated WBC - ID consult, blood cx, UA protein malnutrition - likely from poor appetite due to liver mets weight loss type 2 diabetes - controlled García DOMINGUEZ MD Feb 14, 2019 08:51
[2019-02-14] MEDS ORDERED: DOXAZOSIN MESYLATE 4 MG TABLET. PO SCH (09:00)
[2019-02-14] MEDS: METOPROLOL TART IMMED RELEASE 25 MG TABLET. PO SCH ×2 (09:00→21:00)
[2019-02-14] MEDS: LOSARTAN POTASSIUM 50 MG TABLET. PO SCH (09:00)
[2019-02-14] MEDS ORDERED: IV NORMAL SALINE 1000ML BAG 1,000 ML IV ONE (09:45)
--- NOTE | 2019-02-14 09:45 | NUR ---
Patient's BP still low 75/47, Dr. Perez notified, orders received. Will continue to monitor. Dr. Thurston & Dr. Bautista aware of their consults on this patient.
--- NOTE | 2019-02-14 09:58 | CARD ---
MR#: [id number] Date of Study: 02/14/2019 Ordering Physician: SUNITHA FRANCIS, Referring Physician: SUNITHA FRANCIS Tech: Suzy Padron RDCS APPROVED REPORT EXAM: Two-dimensional and M-mode echocardiogram with Doppler and color Doppler. Other Information Quality : AverageHR: 105bpm Rhythm : Atrial Fibrillation INDICATION Atrial Fibrillation 2D DIMENSIONS RVDd2.9 (2.9-3.5cm)Left Atrium(2D)3.8 (1.6-4.0cm) IVSd1.1 (0.7-1.1cm)Aortic Root(2D)3.2 (2.0-3.7cm) LVDd3.5 (3.9-5.9cm)LVOT Diameter2.0 (1.8-2.4cm) PWd1.3 (0.7-1.1cm)IVSs2.0 (0.8-1.2cm) LVDs2.4 (2.5-4.0cm)FS (%) 32.4 % PWs1.7 (0.8-1.2cm)SV31.5 ml LVEF(%)61.8 (>50%) Aortic Valve AoV Peak Danny.149.2cm/sAoV VTI20.4cm AO Peak GR.8.9mmHgLVOT Peak Danny.86.0cm/s LVOT VTI 14.52cmAO Mean GR.5mmHg SYLVIA (VMAX)1.20cy6EBX (VTI)2.33cm2 Mitral Valve MV E Ilziuwxi05.7cm/sMV DECEL VKUB21vz MV A Lkziasfs56.2cm/sMV PHT6ms E/A Ratio1.0MVA (PHT)36.61cm2 Pulmonary Valve PV Peak Hmrkvwsg369.2cm/sPV Peak Grad.4mmHg Tricuspid Valve TR P. Lurozvfp948ip/sRAP XJFPHHYG8sgIl TR Peak Gr.72wdPrYWBL59fzAq LEFT VENTRICLE The left ventricle is normal size. There is mild concentric left ventricular hypertrophy. The left ve ntricular systolic function is normal and the ejection fraction is within normal range. The Ejection Fraction is 55-60%. There is normal LV segmental wall motion. Transmitral Doppler flow pattern is abn ormal. RIGHT VENTRICLE The right ventricle is normal size. There is normal right ventricular wall thickness. The right ventr icular systolic function is normal. ATRIA The left atrium size is normal. The right atrium size is normal. The interatrial septum is intact wit h no evidence for an atrial septal defect or patent foramen ovale as noted on 2-D or Doppler imaging. AORTIC VALVE The aortic valve is normal in structure and function. The aortic valve is trileaflet. Doppler and Col or Flow revealed trace aortic regurgitation. There is no significant aortic valvular stenosis. MITRAL VALVE Mitral annular calcification is mild. There is no evidence of mitral valve prolapse. There is no mitr al valve stenosis. Doppler and Color-flow revealed trace mitral regurgitation. TRICUSPID VALVE The tricuspid valve is normal in structure and function. Doppler and Color Flow revealed trace tricus pid regurgitation. The PA pressure was estimated at 29 mmHg. There is no tricuspid valve prolapse or vegetation. There is no tricuspid valve stenosis. PULMONIC VALVE The pulmonic valve is not well visualized. GREAT VESSELS The aortic root is normal in size. The ascending aorta is normal in size. The IVC is normal in size a nd collapses >50% with inspiration. PERICARDIAL EFFUSION There is no evidence of significant pericardial effusion. Critical Notification Critical Value: No <Conclusion> The left ventricular systolic function is normal and the ejection fraction is within normal range. Th e Ejection Fraction is 55-60%. There is normal LV segmental wall motion. Signed by : Kelvin Ulloa, Electronically Approved : 02/14/2019 09:57:53
--- NOTE | 2019-02-14 09:59 | PDOC ---
Infectious Disease Note Vital Sign Vital Signs Vital Signs Date Time Temp Pulse Resp B/P (MAP) Pulse Ox O2 Delivery O2 Flow Rate FiO2 02/14/19 08:10 80/48 (59) 02/14/19 08:00 Room Air 02/14/19 07:00 99.0 112 20 97 99.0 Labs Lab Laboratory Tests Test 02/13/19 11:55 02/13/19 17:09 02/13/19 21:15 02/14/19 03:55 Glucose (Fingerstick) 115 mg/dL (70-99) 130 mg/dL (70-99) 115 mg/dL (70-99) White Blood Count 16.3 x10^3/uL (4.0-11.0) Red Blood Count 3.66 x10^6/uL (4.30-5.70) Hemoglobin 11.1 g/dL (13.0-17.5) Hematocrit 33.8 % (39.0-53.0) Mean Corpuscular Volume 92 fL (79-100) Mean Corpuscular Hemoglobin 30 pg (25-35) Mean Corpuscular Hemoglobin Concent 33 g/dL (31-37) Red Cell Distribution Width 13.2 % (11.5-14.5) Platelet Count 423 x10^3/uL (140-400) Neutrophils (%) (Auto) 82 % (31-73) Lymphocytes (%) (Auto) 8 % (24-48) Monocytes (%) (Auto) 9 % (0-9) Eosinophils (%) (Auto) 1 % (0-3) Basophils (%) (Auto) 1 % (0-3) Neutrophils # (Auto) 13.4 x10^3/uL (1.8-7.7) Lymphocytes # (Auto) 1.3 x10^3/uL (1.0-4.8) Monocytes # (Auto) 1.5 x10^3/uL (0.0-1.1) Eosinophils # (Auto) 0.1 x10^3/uL (0.0-0.7) Basophils # (Auto) 0.1 x10^3/uL (0.0-0.2) Sodium Level 138 mmol/L (136-145) Potassium Level 4.0 mmol/L (3.5-5.1) Chloride Level 104 mmol/L (98-107) Carbon Dioxide Level 21 mmol/L (21-32) Anion Gap 13 (6-14) Blood Urea Nitrogen 14 mg/dL (8-26) Creatinine 1.3 mg/dL (0.7-1.3) Estimated GFR (Cockcroft-Gault) 65.3 BUN/Creatinine Ratio 11 (6-20) Glucose Level 127 mg/dL (70-99) Calcium Level 8.6 mg/dL (8.5-10.1) Total Bilirubin 1.6 mg/dL (0.2-1.0) Aspartate Amino Transf (AST/SGOT) 23 U/L (15-37) Alanine Aminotransferase (ALT/SGPT) 24 U/L (16-63) Alkaline Phosphatase 88 U/L (46-116) Total Protein 7.0 g/dL (6.4-8.2) Albumin 2.2 g/dL (3.4-5.0) Albumin/Globulin Ratio 0.5 (1.0-1.7) Procalcitonin 0.70 ng/mL (0.00-0.10) Test 02/14/19 07:26 Glucose (Fingerstick) 127 mg/dL (70-99) Objective Assessment Fever Leukocytosis Esophageal lesion and liver masses Afib - syncope IRVING Poor dentition Constipation DM Plan Plan of Care Check Blood cults/Lactic acid/Urine Add Zosyn F/u labs and CT and ECHO D/w significant other Thank you D/w nursing # [id number] SATNAM DUMONT MD Feb 14, 2019 09:59
--- NOTE | 2019-02-14 10:30 | CONS ---
DATE OF CONSULTATION: LOCATION: The patient is in room 203. REQUESTING PHYSICIAN: Dr. Perez. REASON FOR CONSULTATION: Fever, leukocytosis. HISTORY OF PRESENT ILLNESS: The patient is a pleasant 73-year-old gentleman with a distant history of atrial fibrillation and dysphagia with esophageal stricture. Per report, he was at a , became lightheaded and had an episode of syncope. He refused EMS transfer and showed up to the Emergency Room, was found to have atrial fibrillation. Additionally, he had a white blood cell count elevation at 19.6. He did run a fever as high as 100.2. He underwent a CTA of his chest, which showed findings concerning for a mass at the GE junction, with invasion of the right paraesophageal fat and extensive hepatic metastatic disease, but no pulmonary embolism. Because of his low-grade fever and white blood cell count elevation, we have been asked to evaluate the patient. Currently, the patient is sitting in a chair. He is fairly comfortable, although he feels cold. He states for the last 2-3 weeks, he has had issues with swallowing and his food getting stuck, where he would have to bring it back up, although he denies any nausea, vomiting, and no coughing, and denies any blood in the food that came back up. He has had some weight loss and ongoing sweats for several weeks as well. He denies any dysuria, frequency, urgency, has had a little bit of constipation. Denies any blood in his stools. Denies any ill contacts. He has no headaches, no sinus issues, and no problems with pain in any of his teeth. Denies any additional joint issues or rashes. PAST MEDICAL HISTORY: Positive for atrial fibrillation, hypertension, osteoarthritis, diabetes, esophageal stricture with previous dilatation, history of embolic stroke with left eye blindness, type 2 diabetes, BPH, chronic kidney disease, and gastroesophageal reflux disease. PAST SURGICAL HISTORY: Positive for lumbar laminectomy, anterior cervical diskectomy. REVIEW OF SYSTEMS: Otherwise, negative except for mentioned above. ALLERGIES: LISTED EFREM INHIBITORS. SOCIAL HISTORY: He does not smoke. No alcohol. Listed as single. He has a significant other in the room. 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 He has no pets. FAMILY HISTORY: Noncontributory. CURRENT MEDICATIONS: Include amlodipine, insulin, losartan, Glucophage, metoprolol, Protonix. PHYSICAL EXAMINATION: VITAL SIGNS: T-max has been 100.2, currently 99, pulse 112, respirations 20, blood pressure 80/48 in a chair. CONSTITUTIONAL: He is sitting in a chair. He is cooperative. He is in no acute distress. HEENT: Pupils appear to have some early cataracts. He has normal conjunctivae. Oral cavity: Pharynx has poor dentition, otherwise clear. NECK: Supple. Good range of motion. LUNGS: Clear to auscultation. HEART: S1, S2. ABDOMEN: Soft, nontender, no guarding or rebound. EXTREMITIES: Without clubbing, cyanosis or gross edema. SKIN: Warm to touch without signs of rash. NEUROLOGIC: He is nonfocal, moves all extremities. He answers questions appropriately. PSYCHIATRIC: Affect is appropriate. LABORATORY VALUES: White count 16.3, hemoglobin 11.1, platelets of 423, neutrophils of 82. Creatinine 1.3, glucose 127. Normal liver function study test. Procalcitonin of 0.7. Radiology reviewed in history of present illness. IMPRESSION: 1. Fever. 2. Leukocytosis. 3. Esophageal lesion and liver masses. 4. Atrial fibrillation, syncope. 5. Acute kidney injury. 6. Poor dentition. 7. Constipation. 8. Diabetes. RECOMMENDATIONS: Obtain blood cultures x 2. Obtain lactic acidosis. Urinalysis has been ordered. We will begin Zosyn. Follow up labs. CT scan of abdomen and pelvis as well as echo. This was discussed with significant other as well as nursing. Thank you for allowing me to participate in the patient's care. Should you have any questions, please do not hesitate to contact me. SATNAM DUMONT MD DR: CAROLINA/silverio JOB#: [id number] / [id number] LEXY
[2019-02-14] MEDS ORDERED: LIDOCAINE 2% PF 5 ML VIAL. ONE (11:49)
[2019-02-14] MEDS ORDERED: PROPOFOL 20 ML IV ONE (11:49)
[2019-02-14] MEDS ORDERED: IV RINGERS,LACTATED 1000ML 1,000 ML IV ONE (12:00)
--- NOTE | 2019-02-14 12:42 | NUR ---
SS following for discharge planning. SS reviewed pt chart. Pt is from home and is currently on room air. SS will continue to follow for discharge planning.
--- NOTE | 2019-02-14 13:10 | PDOC4 ---
Operative Note Operative Note EGD with biopsies Meds propofol per anesthesia Pre-op dx dysphagia/wt loss/abnl Ct post-op dx esopahgeal mass s/p bx r/ malignancy 37-39 cm from incisors Plan oncology/radiation consults forpossible adjuvant therapy with metastatic disease on CT scan possible PEG pending above decisions YAKELIN ABARCA MD Feb 14, 2019 13:10
--- NOTE | 2019-02-14 13:48 | PDOC ---
SPENCER BAIN RANCH HAND SUPERVISOR 02/14/19 1348: CARDIO Progress Notes Date and Time Date of Service 02/14/19 Time of Evaluation 1300 Subjective Subjective: No Chest Pain, No shortness of breath, No Palpitations Vitals Vitals Vital Signs Date Time Temp Pulse Resp B/P (MAP) Pulse Ox O2 Delivery O2 Flow Rate FiO2 02/14/19 13:35 77 20 105/59 94 Room Air 02/14/19 13:05 97.6 97.6 Weight Weight [ ] Input and Output Intake and Output Intake and Output 02/14/19 09:00 Intake Total 345 ml Balance 345 ml Intake Oral 345 ml # Voids 4 Laboratory Labs Laboratory Tests Test 02/13/19 17:09 02/13/19 21:15 02/14/19 03:55 02/14/19 07:26 Glucose (Fingerstick) 130 mg/dL (70-99) 115 mg/dL (70-99) 127 mg/dL (70-99) White Blood Count 16.3 x10^3/uL (4.0-11.0) Red Blood Count 3.66 x10^6/uL (4.30-5.70) Hemoglobin 11.1 g/dL (13.0-17.5) Hematocrit 33.8 % (39.0-53.0) Mean Corpuscular Volume 92 fL (79-100) Mean Corpuscular Hemoglobin 30 pg (25-35) Mean Corpuscular Hemoglobin Concent 33 g/dL (31-37) Red Cell Distribution Width 13.2 % (11.5-14.5) Platelet Count 423 x10^3/uL (140-400) Neutrophils (%) (Auto) 82 % (31-73) Lymphocytes (%) (Auto) 8 % (24-48) Monocytes (%) (Auto) 9 % (0-9) Eosinophils (%) (Auto) 1 % (0-3) Basophils (%) (Auto) 1 % (0-3) Neutrophils # (Auto) 13.4 x10^3/uL (1.8-7.7) Lymphocytes # (Auto) 1.3 x10^3/uL (1.0-4.8) Monocytes # (Auto) 1.5 x10^3/uL (0.0-1.1) Eosinophils # (Auto) 0.1 x10^3/uL (0.0-0.7) Basophils # (Auto) 0.1 x10^3/uL (0.0-0.2) Sodium Level 138 mmol/L (136-145) Potassium Level 4.0 mmol/L (3.5-5.1) Chloride Level 104 mmol/L (98-107) Carbon Dioxide Level 21 mmol/L (21-32) Anion Gap 13 (6-14) Blood Urea Nitrogen 14 mg/dL (8-26) Creatinine 1.3 mg/dL (0.7-1.3) Estimated GFR (Cockcroft-Gault) 65.3 BUN/Creatinine Ratio 11 (6-20) Glucose Level 127 mg/dL (70-99) Calcium Level 8.6 mg/dL (8.5-10.1) Total Bilirubin 1.6 mg/dL (0.2-1.0) Aspartate Amino Transf (AST/SGOT) 23 U/L (15-37) Alanine Aminotransferase (ALT/SGPT) 24 U/L (16-63) Alkaline Phosphatase 88 U/L (46-116) Total Protein 7.0 g/dL (6.4-8.2) Albumin 2.2 g/dL (3.4-5.0) Albumin/Globulin Ratio 0.5 (1.0-1.7) Procalcitonin 0.70 ng/mL (0.00-0.10) Test 02/14/19 10:05 Lactic Acid Level 1.5 mmol/L (0.4-2.0) Physical Exam HEENT: Neck Supple W Full Motion LUNGS: Clear to Auscultation Heart: S1S2, RRR (SR with PVC's, PACs, and few bursts of AFIB) Abdomen: Soft N/T Extremities: No Edema Neurology: alert, oriented, follow commands Assessment Assessment 1. PAFIB; mostly maintaining SR. Telemetry notable for brief bursts of AFIB. Echo showed preserved LV systolic function. 2. Hypertension; low normotensive 3. Hyperlipidemia; statin therapy 4. Diabetes, II; as per PCP 5. Esophageal mass; Concerns for CA, s/p EGD with biopsy. Probable metastatic lesions on liver. Recommendations Continue metoprolol for rate control. OAC when workup for CA is complete. TSH, lipids Supportive care from a CV standpoint SUNITHA FRANCIS MD 02/14/19 1514: CARDIO Progress Notes Assessment Assessment Patient seen and examined. Agree with TEA PLANTATION WORKER's assessment and plan. Maintaining sinus rhythm. 2-D echo showed normal LV systolic function. We will consider initiation of long-term anticoagulation once workup for esophageal cancer is completed. SPENCER BAIN APRN Feb 14, 2019 13:48 SUNITHA FRANCIS MD Feb 14, 2019 15:14
[2019-02-14] MEDS ORDERED: IOHEXOL 300 MG/ML 100ML VIAL. IV ONE (14:30)
[2019-02-14] MEDS ORDERED: IOHEXOL 240 MG/ML 50ML VIAL. PO ONE (14:30)
[2019-02-14] MEDS: PIPERACILLIN/TAZOBACTAM 3.375 GM in IV NORMAL SALINE 50ML 50 ML IV SCH ×2 (14:45→18:38)
[2019-02-14] MEDS ORDERED: CONTRAST GIVEN. MC PRN (14:45)
[2019-02-14 16:04] LABS: CHOLESTEROL/HDL RATIO 3.2
--- NOTE | 2019-02-14 18:09 | RAD ---
CT study abdomen and pelvis with contrast Clinical indications: Liver metastatic disease. Mass at the gastroesophageal junction seen on recent chest CT dated February 12, 2019. COMPARISON: No previous CT study of the abdomen and pelvis available. TECHNIQUE: After IV infusion of 75 cc of Omnipaque 300, helical CT scanning of the abdomen and pelvis was performed. GI contrast was administered per mouth. PQRS compliance Statement One or more of the following individualized dose reduction techniques were utilized for this study: 1. Automated exposure control 2. Adjustment of the mA and/or kV according to patient size 3. Use of iterative reconstruction technique FINDINGS: Multiple hypodense lesions of the left and right lobes of the liver are seen consistent with hepatic metastasis. The spleen is not enlarged. Pancreas is normal. Gallbladder is small in size. No extrahepatic biliary ductal dilatation is seen. No adrenal mass is evident. Both kidneys are normal without hydronephrosis. Urinary bladder wall is smooth. No focal aneurysmal dilatation of the abdominal aorta is seen. No enlarged abdominal or pelvic lymphadenopathy is seen. Small hiatal hernia is seen. There is wall thickening of the gastric cardia and the distal esophagus. This may represent neoplastic disease. There is soft tissue extension involving the paraesophageal fat on the right side of the distal esophagus. This soft tissue extension measures 15 mm in AP dimension and 17 mm in transverse dimension. There is wall thickening of the distal antrum of the stomach which may be due to gastric contraction. Sigmoid diverticulosis is seen without diverticulitis. The appendix is normal. The terminal ileum is unremarkable. No obstructive bowel pattern is evident. No free air or free fluid or mesenteric edema is seen. No focal aneurysmal dilatation of the abdominal aorta is seen. There are gastrohepatic lymph nodes present and the largest measures 17 mm transversely seen best on image 15 and series 2. No lung base consolidative infiltrate is seen. No lytic process is seen. Grade 1 anterolisthesis of L4-5 is seen. IMPRESSION: Circumferential wall thickening of the distal esophagus and gastric cardia with right paraesophageal soft tissue extension consistent with a neoplastic process. There are gastrohepatic lymph nodes present with the largest measuring 17 mm in transverse dimension. Electronically signed by: Rocael Devlin MD (02/14/2019 6:06 PM) [id number]
[2019-02-14 19:38] LABS: BILIRUBIN,URINE SMALL (NEG); CLARITY,URINE CLEAR; COLOR,URINE YELLOW; NITRITE,URINE NEGATIVE (NEG); PROTEIN,URINE NEGATIVE (NEG-TRACE)
[2019-02-14 19:45] LABS: SQUAMOUS EPITHELIAL CELL,UR FEW /LPF
[2019-02-14 19:46] LABS: AMORPHOUS SEDIMENT,UR PRESENT /HPF; BACTERIA,URINE 0 /HPF (0-FEW); RBC,URINE 0 /HPF (0-2)
[2019-02-14] MEDS: INSULIN GLARGINE SYRINGE. SQ SCH (21:00)
[2019-02-14] MEDS: ACETAMINOPHEN 325 MG TABLET. PO PRN (21:43)
[2019-02-15] MEDS: PIPERACILLIN/TAZOBACTAM 3.375 GM in IV NORMAL SALINE 50ML 50 ML IV SCH ×3 (00:05→12:00)
[2019-02-15 03:21] LABS: BASO # 0.1 x10^3/uL (0.0-0.2); BASO % 0 % (0-3); EOS # 0.1 x10^3/uL (0.0-0.7); EOS % 0 % (0-3); HEMATOCRIT 29.8 % (39.0-53.0); HEMOGLOBIN 9.9 g/dL (13.0-17.5); LYMPH % 5 % (24-48); MEAN CORPUSCULAR HEMOGLOBIN 31 pg (25-35); MEAN CORPUSCULAR HGB CONC 33 g/dL (31-37); MEAN CORPUSCULAR VOLUME 92 fL (79-100); MONO # 1.4 x10^3/uL (0.0-1.1); MONO % 7 % (0-9); NEUT # 16.9 x10^3/uL (1.8-7.7); NEUT % 87 % (31-73); PLATELET COUNT 424 x10^3/uL (140-400); RED BLOOD COUNT 3.24 x10^6/uL (4.30-5.70); RED CELL DISTRIBUTION WIDTH 13.6 % (11.5-14.5); WHITE BLOOD COUNT 19.4 x10^3/uL (4.0-11.0)
--- NOTE | 2019-02-15 03:25 | CONS ---
DATE OF CONSULTATION: 02/14/2019 REFERRING PHYSICIAN: Dr. Ishan Francisco. 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 He has just undergone upper endoscopy and biopsy this afternoon on 02/14/2019. We were asked to see him regarding the role of palliative radiation in his care. Biopsy was performed. Results are pending. ICD-10: C16, C78.7. HISTORY OF PRESENT ILLNESS: The patient is a 73-year-old man who has had a 3-4 week history of difficulty with swallowing. He only was able to swallow liquids and soft foods associated with this there has been some loss of appetite and fatigue and 26-27 pound weight loss. During this time, he has had no chest or abdominal pain, no nausea or vomiting. Normal bowel function without melena or bloody stools. On 02/12/2019, he was attending a friend's and passed out. Outpatient endoscopy was previously scheduled for today on 02/14/2019. He was admitted as a result of his syncopal episode. He underwent upper endoscopy by Dr. Ishan Francisco earlier today. This revealed an esophageal mass at 37-39 cm from the incisors. Biopsies were obtained. He felt that a PEG tube was a consideration. CT scan of the chest from 02/12/2019 revealed a soft tissue mass invading into the adjacent fat along the right aspect of the GE junction measuring 2.2 x 1.2 cm. There were multiple ill-defined hypoattenuating lesions in the liver consistent with metastatic disease. 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 No other stroke or PR in the past. ALLERGIES: No known allergies. MEDICATIONS: See hospital list. FAMILY HISTORY: No malignancy. SOCIAL HISTORY: for many years. from complications of lupus. He has a significant girlfriend that he lives with Yoko Camacho. 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 He has one daughter and cares for his 10-year-old grandson. Denies cigarette, alcohol, or drug use. PHYSICAL EXAMINATION: GENERAL: Revealed alert, cooperative, robust-appearing gentleman in no acute distress. He had no scleral icterus. He was not emaciated. VITAL SIGNS: Weight 88.4 kilograms. HEENT: Unremarkable. LYMPH NODES: He had no palpable cervical or supraclavicular adenopathy. LUNGS: Clear to percussion. ABDOMEN: Obese. No hepatomegaly. Mild tenderness in the right upper quadrant. EXTREMITIES: Reveal no clubbing, cyanosis or edema. NEUROLOGIC: He has visual loss in left eye. No focal deficits elsewhere. LABORATORY STUDIES: From today 02/12/2019, hemoglobin 11.1, white count 16,300, platelet count 423,000. Chemistry panel from today, normal electrolytes, creatinine 1.3, glucose 127, calcium 8.6, total bilirubin slightly elevated at 1.6. Normal liver function tests, AST 23, ALT 24, alkaline phosphatase 88. ASSESSMENT AND PLAN: In summary, my impression is that of stage 4 carcinoma of the GE junction with likely liver metastasis as diagnosis. We await biopsy from his endoscopy. He has had significant weight loss and dysphagia from his primary lesion. He is not, however, interested in supportive gastrostomy tube. He would prefer to proceed with palliative radiation therapy and following this, palliative systemic chemotherapy is his primary treatment choice. I reviewed this in general with him. We await the biopsy of his endoscopy done earlier today, which is likely available by 02/16/2019. I anticipate he will discuss systemic treatment with our medical oncologist when his biopsy result becomes available. I did discuss the treatable but incurable nature of his disease at presentation. Thank you for allowing us to participate in his evaluation. HA OLIVAS MD DR: EARNEST/silverio JOB#: [id number] / [id number] MALIA Jean MD, MONICA ALVAREZ, MENA DOMINGUEZ, García OWEN, SCAR EVANGELISTA, MALICK PUGH
[2019-02-15 03:39] LABS: CALCIUM 8.4 mg/dL (8.5-10.1); CREATININE 1.5 mg/dL (0.7-1.3); GFR 55.4; POTASSIUM 4.3 mmol/L (3.5-5.1)
--- NOTE | 2019-02-15 03:51 | CONS ---
DATE OF CONSULTATION: 02/14/2019 MEDICAL ONCOLOGY CONSULTATION REQUESTING PHYSICIAN: Dr. Cyril Perez. REASON FOR CONSULTATION: Esophageal mass with liver metastasis. HISTORY OF PRESENT ILLNESS: The patient is a 73-year-old gentleman who has had dysphagia since 12/2018. He states that it is worse during this period, but it was there even before 12/2018, with dysphagia for solid food and he has noticed a 27-pound weight loss in 3-6 months prior to admission to the hospital. He has noted that the food gets stuck and he had to pursue with self-induced vomiting to help get some relief. He had a syncopal episode on 02/12/2019 at a and hence he came into the Emergency Room and he was noted to have atrial fibrillation. He underwent a CT angiogram of the chest on 02/12/2019, which revealed findings concerning for a mass at the gastroesophageal junction with invasion of the right paraesophageal fat with extensive hepatic metastatic disease. GI was consulted and he underwent an upper endoscopy by Dr. Ishan Francisco on 02/14/2019, which revealed esophageal mass 37-39 cm from the incisors, concerning for malignancy. Biopsies were obtained and results are pending. I was asked to see the patient for esophageal mass and liver metastasis. PAST MEDICAL HISTORY: Atrial fibrillation, hypertension, osteoarthritis, diabetes. SOCIAL HISTORY: Never smoker. No alcohol abuse. FAMILY HISTORY: Negative for malignancy. REVIEW OF SYSTEMS: A 12-point review of system was performed. Pertinent positives are mentioned in the history of present illness. Rest of the system review is negative. PHYSICAL EXAMINATION: GENERAL APPEARANCE: The patient is a 73-year-old -[place] gentleman, who is in no acute cardiorespiratory distress. VITAL SIGNS: Blood pressure 109/62, temperature of 97.4. HEENT: Atraumatic, normocephalic. EYES: No icterus. NECK: Supple. CHEST: Bilaterally symmetrical. HEART: S1, S2 normal. ABDOMEN: Soft, nontender. CENTRAL NERVOUS SYSTEM: No focal deficits. LYMPHATICS: No lymphadenopathy. SKIN: No rashes. PSYCHOLOGIC: Mood and affect are appropriate. MUSCULOSKELETAL: No joint effusions. LABORATORY DATA: WBC 16.3, hemoglobin 11.1, platelet count 423. There was evidence of 9% bands, 1% metamyelocytes and myelocytes at the time of admission. Total bilirubin is 1.6 with AST 23, ALT 24, alkaline phosphatase 88, total protein 7, albumin 2.2, calcium 8.6, creatinine of 1.3, sodium 138, potassium 4.0. IMPRESSION AND PLAN: 1. Esophageal mass with liver metastasis is clinically concerning for esophageal cancer, stage 4. He underwent an EGD that revealed a mass in the distal esophagus on 02/14/2019, and biopsies have been obtained and I will await results. I discussed in detail with the patient regarding the clinical impression of malignancy and the need for diagnostic workup and the role of palliative chemotherapy. Radiation/Oncology has also been consulted. 2. Liver metastasis. He has mildly elevated bilirubin level. Continue to monitor. 3. Anemia. I will obtain iron studies, B12 and reticulocyte count. 4. Thrombocytosis, reactive. Continue to monitor. 5. I will obtain staging workup with CT abdomen and pelvis and bone scan. MALICK EVANGELISTA MD DR: SEPIDEH/silverio JOB#: [id number] / [id number]
[2019-02-15 03:59] VITALS: BP 112/62
[2019-02-15 07:00] VITALS: BP 131/74
--- NOTE | 2019-02-15 07:41 | PDOC ---
Infectious Disease Note Subjective Subjective Feels better. Less chill. No gross pain and denies F/C/S/N/V/D/SOA/rash + BM ROS ROS o/w neg Vital Sign Vital Signs Vital Signs Date Time Temp Pulse Resp B/P (MAP) Pulse Ox O2 Delivery O2 Flow Rate FiO2 02/15/19 03:59 98.5 65 16 112/62 (79) 97 Room Air 98.5 Physical Exam PHYSICAL EXAM CONSTITUTIONAL: He is sitting in a chair. He is cooperative. He is in no acute distress. HEENT: Pupils appear to have some early cataracts. He has normal conjunctivae. Oral cavity: Pharynx has poor dentition, otherwise clear. NECK: Supple. Good range of motion. LUNGS: Clear to auscultation. HEART: S1, S2. ABDOMEN: Soft, nontender, no guarding or rebound. EXTREMITIES: Without clubbing, cyanosis or gross edema. SKIN: Warm to touch without signs of rash. NEUROLOGIC: He is nonfocal, moves all extremities. He answers questions appropriately. PSYCHIATRIC: Affect is appropriate. Labs Lab Laboratory Tests Test 02/14/19 10:05 02/14/19 16:35 02/14/19 19:00 02/14/19 21:02 Lactic Acid Level 1.5 mmol/L (0.4-2.0) Ferritin 522 ng/mL (26-388) Vitamin B12 Level > 2000 pg/mL (247-911) Glucose (Fingerstick) 139 mg/dL (70-99) 112 mg/dL (70-99) Urine Collection Type Unknown Urine Color Yellow Urine Clarity Clear Urine pH 5.0 Urine Specific [place] >=1.030 Urine Protein Negative mg/dL (NEG-TRACE) Urine Glucose (UA) Negative mg/dL (NEG) Urine Ketones (Stick) Trace mg/dL (NEG) Urine Blood Negative (NEG) Urine Nitrite Negative (NEG) Urine Bilirubin Small (NEG) Urine Urobilinogen Dipstick 1.0 mg/dL (0.2 mg/dL) Urine Leukocyte Esterase Negative (NEG) Urine RBC 0 /HPF (0-2) Urine WBC 1-4 /HPF (0-4) Urine Squamous Epithelial Cells Few /LPF Urine Amorphous Sediment Present /HPF Urine Bacteria 0 /HPF (0-FEW) Urine Mucus Slight /LPF Test 02/15/19 02:30 White Blood Count 19.4 x10^3/uL (4.0-11.0) Red Blood Count 3.24 x10^6/uL (4.30-5.70) Hemoglobin 9.9 g/dL (13.0-17.5) Hematocrit 29.8 % (39.0-53.0) Mean Corpuscular Volume 92 fL (79-100) Mean Corpuscular Hemoglobin 31 pg (25-35) Mean Corpuscular Hemoglobin Concent 33 g/dL (31-37) Red Cell Distribution Width 13.6 % (11.5-14.5) Platelet Count 424 x10^3/uL (140-400) Neutrophils (%) (Auto) 87 % (31-73) Lymphocytes (%) (Auto) 5 % (24-48) Monocytes (%) (Auto) 7 % (0-9) Eosinophils (%) (Auto) 0 % (0-3) Basophils (%) (Auto) 0 % (0-3) Neutrophils # (Auto) 16.9 x10^3/uL (1.8-7.7) Lymphocytes # (Auto) 1.0 x10^3/uL (1.0-4.8) Monocytes # (Auto) 1.4 x10^3/uL (0.0-1.1) Eosinophils # (Auto) 0.1 x10^3/uL (0.0-0.7) Basophils # (Auto) 0.1 x10^3/uL (0.0-0.2) Sodium Level 140 mmol/L (136-145) Potassium Level 4.3 mmol/L (3.5-5.1) Chloride Level 106 mmol/L (98-107) Carbon Dioxide Level 25 mmol/L (21-32) Anion Gap 9 (6-14) Blood Urea Nitrogen 21 mg/dL (8-26) Creatinine 1.5 mg/dL (0.7-1.3) Estimated GFR (Cockcroft-Gault) 55.4 Glucose Level 128 mg/dL (70-99) Calcium Level 8.4 mg/dL (8.5-10.1) Objective Assessment Fever - ? infection vs tumor - UA - clean - PV not well visualized on ECHO but o/w no gross signs of veg Leukocytosis -mild increase ? post procedure Esophageal lesion and liver masses s/p EGD and biopsy 02/14 Afib - syncope IRIVNG -mild increase Poor dentition Constipation DM Plan Plan of Care F/u Blood cults/labs Added Zosyn 02/14 will continue for now D/w significant other D/w nursing SATNAM DUMONT MD Feb 15, 2019 07:41
[2019-02-15] MEDS: PANTOPRAZOLE 40 MG TABLET.DR. PO SCH (08:29)
[2019-02-15] MEDS: LOSARTAN POTASSIUM 50 MG TABLET. PO SCH (08:30)
[2019-02-15] MEDS: METOPROLOL TART IMMED RELEASE 25 MG TABLET. PO SCH (08:30)
--- NOTE | 2019-02-15 09:11 | PDOC ---
Subjective: Subjective: Tolerating liquids, feeling okay. Objective: Objective: Reviewed other notes - Per Dr. 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 We await biopsy from his endoscopy. He has had significant weight loss and dysphagia from his primary lesion. He is not, however, interested in supportive gastrostomy tube. He would prefer to proceed with palliative radiation therapy and following this, palliative systemic chemotherapy is his primary treatment choice. To have bone scan today. Vital Signs: Vital Signs Date Time Temp Pulse Resp B/P (MAP) Pulse Ox O2 Delivery O2 Flow Rate FiO2 02/15/19 08:30 65 112/62 02/15/19 07:00 97.4 18 98 Room Air 97.4 Labs: Laboratory Tests Test 02/14/19 10:05 02/14/19 16:35 02/14/19 19:00 02/14/19 21:02 Lactic Acid Level 1.5 mmol/L Ferritin 522 ng/mL Vitamin B12 Level > 2000 pg/mL Glucose (Fingerstick) 139 mg/dL 112 mg/dL Urine Collection Type Unknown Urine Color Yellow Urine Clarity Clear Urine pH 5.0 Urine Specific [place] >=1.030 Urine Protein Negative mg/dL Urine Glucose (UA) Negative mg/dL Urine Ketones (Stick) Trace mg/dL Urine Blood Negative Urine Nitrite Negative Urine Bilirubin Small Urine Urobilinogen Dipstick 1.0 mg/dL Urine Leukocyte Esterase Negative Urine RBC 0 /HPF Urine WBC 1-4 /HPF Urine Squamous Epithelial Cells Few /LPF Urine Amorphous Sediment Present /HPF Urine Bacteria 0 /HPF Urine Mucus Slight /LPF Test 02/15/19 02:30 02/15/19 08:26 White Blood Count 19.4 x10^3/uL Red Blood Count 3.24 x10^6/uL Hemoglobin 9.9 g/dL Hematocrit 29.8 % Mean Corpuscular Volume 92 fL Mean Corpuscular Hemoglobin 31 pg Mean Corpuscular Hemoglobin Concent 33 g/dL Red Cell Distribution Width 13.6 % Platelet Count 424 x10^3/uL Neutrophils (%) (Auto) 87 % Lymphocytes (%) (Auto) 5 % Monocytes (%) (Auto) 7 % Eosinophils (%) (Auto) 0 % Basophils (%) (Auto) 0 % Neutrophils # (Auto) 16.9 x10^3/uL Lymphocytes # (Auto) 1.0 x10^3/uL Monocytes # (Auto) 1.4 x10^3/uL Eosinophils # (Auto) 0.1 x10^3/uL Basophils # (Auto) 0.1 x10^3/uL Sodium Level 140 mmol/L Potassium Level 4.3 mmol/L Chloride Level 106 mmol/L Carbon Dioxide Level 25 mmol/L Anion Gap 9 Blood Urea Nitrogen 21 mg/dL Creatinine 1.5 mg/dL Estimated GFR (Cockcroft-Gault) 55.4 Glucose Level 128 mg/dL Calcium Level 8.4 mg/dL Iron Level 13 ug/dL Total Iron Binding Capacity 119 ug/dL Iron Saturation 11 % Glucose (Fingerstick) 116 mg/dL Imaging: EGD 02/14 esophageal mass s/p bx r/ malignancy 37-39 cm from incisors Echocardiogram 02/14 <Conclusion> The left ventricular systolic function is normal and the ejection fraction is within normal range. The Ejection Fraction is 55-60%. There is normal LV segmental wall motion. PE: GEN: NAD - up to chair LUNGS: CTAB HEART: RRR ABD: S/ND/NT NEURO/PSYCH: A & O 3 A/P: Esophageal mass Anemia Fever, leukocytosis -- Will follow - seems his preference is to proceed without PEG. CRICKET DUCKWORTH Feb 15, 2019 09:11
--- NOTE | 2019-02-15 09:17 | PDOC ---
PROGRESS NOTES Subjective Subjective HPI - f/u of Esophageal mass with liver metastasis ROS - has dysphagia Objective Objective Vital Signs Date Time Temp Pulse Resp B/P (MAP) Pulse Ox O2 Delivery O2 Flow Rate FiO2 02/15/19 08:30 65 112/62 02/15/19 07:00 97.4 18 98 Room Air 97.4 Intake and Output 02/15/19 07:00 Intake Total 1000 ml Balance 1000 ml Intake Oral 0 ml IV Total 1000 ml Physical Exam Heart: Normal S1, Normal S2 General: Alert, Oriented X3 Lungs: Clear to auscultation Neuro: Normal speech Psych/Mental Status: Mental status NL Assessment Assessment Problems Medical Problems: (1) Abnormal CT of the abdomen Status: Acute (2) Atrial fibrillation with RVR Status: Acute (3) Dysphagia Status: Acute (4) Syncope and collapse Status: Acute IMPRESSION AND PLAN: 1. Esophageal mass with liver metastasis is clinically concerning for esophageal cancer, stage 4. He underwent an EGD that revealed a mass in the distal esophagus on 02/14/2019, and biopsies have been obtained and I will await results. I discussed in detail with the patient regarding the clinical impression of malignancy and the need for diagnostic workup and the role of palliative chemotherapy. Radiation/Oncology has also been consulted. Palliative XRT planned. I d/w DR Cheng and DR Perez. 2. Liver metastasis. He has mildly elevated bilirubin level. Continue to monitor. 3. Anemia. Iron studies, B12 reveal no deficiencies. 4. Thrombocytosis, reactive. Continue to monitor. 5. CT abdomen and pelvis 02/14/19: Circumferential wall thickening of the distal esophagus and gastric cardia with right paraesophageal soft tissue extension consistent with a neoplastic process. There are gastrohepatic lymph nodes present with the largest measuring 17 mm in transverse dimension. Liver mets. 6. Bone scan pending. Comment Review of Relevant I have reviewed the following items momo (where applicable) has been applied. Labs Laboratory Tests Test 02/13/19 11:55 02/13/19 17:09 02/13/19 21:15 02/14/19 03:55 Glucose (Fingerstick) 115 mg/dL (70-99) 130 mg/dL (70-99) 115 mg/dL (70-99) White Blood Count 16.3 x10^3/uL (4.0-11.0) Red Blood Count 3.66 x10^6/uL (4.30-5.70) Hemoglobin 11.1 g/dL (13.0-17.5) Hematocrit 33.8 % (39.0-53.0) Mean Corpuscular Volume 92 fL (79-100) Mean Corpuscular Hemoglobin 30 pg (25-35) Mean Corpuscular Hemoglobin Concent 33 g/dL (31-37) Red Cell Distribution Width 13.2 % (11.5-14.5) Platelet Count 423 x10^3/uL (140-400) Neutrophils (%) (Auto) 82 % (31-73) Lymphocytes (%) (Auto) 8 % (24-48) Monocytes (%) (Auto) 9 % (0-9) Eosinophils (%) (Auto) 1 % (0-3) Basophils (%) (Auto) 1 % (0-3) Neutrophils # (Auto) 13.4 x10^3/uL (1.8-7.7) Lymphocytes # (Auto) 1.3 x10^3/uL (1.0-4.8) Monocytes # (Auto) 1.5 x10^3/uL (0.0-1.1) Eosinophils # (Auto) 0.1 x10^3/uL (0.0-0.7) Basophils # (Auto) 0.1 x10^3/uL (0.0-0.2) Absolute Reticulocyte Count 0.035 x10^6/uL (0.020-0.120) Percent Reticulocyte Count 1.0 % (0.5-2.3) Immature Reticulocyte Fraction 0.41 (0.20-0.60) Sodium Level 138 mmol/L (136-145) Potassium Level 4.0 mmol/L (3.5-5.1) Chloride Level 104 mmol/L (98-107) Carbon Dioxide Level 21 mmol/L (21-32) Anion Gap 13 (6-14) Blood Urea Nitrogen 14 mg/dL (8-26) Creatinine 1.3 mg/dL (0.7-1.3) Estimated GFR (Cockcroft-Gault) 65.3 BUN/Creatinine Ratio 11 (6-20) Glucose Level 127 mg/dL (70-99) Calcium Level 8.6 mg/dL (8.5-10.1) Total Bilirubin 1.6 mg/dL (0.2-1.0) Aspartate Amino Transf (AST/SGOT) 23 U/L (15-37) Alanine Aminotransferase (ALT/SGPT) 24 U/L (16-63) Alkaline Phosphatase 88 U/L (46-116) Total Protein 7.0 g/dL (6.4-8.2) Albumin 2.2 g/dL (3.4-5.0) Albumin/Globulin Ratio 0.5 (1.0-1.7) Triglycerides Level 82 mg/dL (0-150) Cholesterol Level 93 mg/dL (0-200) LDL Cholesterol, Calculated 48 mg/dL (0-100) VLDL Cholesterol, Calculated 16 mg/dL (0-40) Non-HDL Cholesterol Calculated 64 mg/dL (0-129) HDL Cholesterol 29 mg/dL (40-60) Cholesterol/HDL Ratio 3.2 Procalcitonin 0.70 ng/mL (0.00-0.10) Thyroid Stimulating Hormone (TSH) 3.266 uIU/mL (0.358-3.74) Test 02/14/19 07:26 02/14/19 10:05 02/14/19 16:35 02/14/19 19:00 Glucose (Fingerstick) 127 mg/dL (70-99) 139 mg/dL (70-99) Lactic Acid Level 1.5 mmol/L (0.4-2.0) Ferritin 522 ng/mL (26-388) Vitamin B12 Level > 2000 pg/mL (247-911) Urine Collection Type Unknown Urine Color Yellow Urine Clarity Clear Urine pH 5.0 Urine Specific [place] >=1.030 Urine Protein Negative mg/dL (NEG-TRACE) Urine Glucose (UA) Negative mg/dL (NEG) Urine Ketones (Stick) Trace mg/dL (NEG) Urine Blood Negative (NEG) Urine Nitrite Negative (NEG) Urine Bilirubin Small (NEG) Urine Urobilinogen Dipstick 1.0 mg/dL (0.2 mg/dL) Urine Leukocyte Esterase Negative (NEG) Urine RBC 0 /HPF (0-2) Urine WBC 1-4 /HPF (0-4) Urine Squamous Epithelial Cells Few /LPF Urine Amorphous Sediment Present /HPF Urine Bacteria 0 /HPF (0-FEW) Urine Mucus Slight /LPF Test 02/14/19 21:02 02/15/19 02:30 02/15/19 08:26 Glucose (Fingerstick) 112 mg/dL (70-99) 116 mg/dL (70-99) White Blood Count 19.4 x10^3/uL (4.0-11.0) Red Blood Count 3.24 x10^6/uL (4.30-5.70) Hemoglobin 9.9 g/dL (13.0-17.5) Hematocrit 29.8 % (39.0-53.0) Mean Corpuscular Volume 92 fL (79-100) Mean Corpuscular Hemoglobin 31 pg (25-35) Mean Corpuscular Hemoglobin Concent 33 g/dL (31-37) Red Cell Distribution Width 13.6 % (11.5-14.5) Platelet Count 424 x10^3/uL (140-400) Neutrophils (%) (Auto) 87 % (31-73) Lymphocytes (%) (Auto) 5 % (24-48) Monocytes (%) (Auto) 7 % (0-9) Eosinophils (%) (Auto) 0 % (0-3) Basophils (%) (Auto) 0 % (0-3) Neutrophils # (Auto) 16.9 x10^3/uL (1.8-7.7) Lymphocytes # (Auto) 1.0 x10^3/uL (1.0-4.8) Monocytes # (Auto) 1.4 x10^3/uL (0.0-1.1) Eosinophils # (Auto) 0.1 x10^3/uL (0.0-0.7) Basophils # (Auto) 0.1 x10^3/uL (0.0-0.2) Sodium Level 140 mmol/L (136-145) Potassium Level 4.3 mmol/L (3.5-5.1) Chloride Level 106 mmol/L (98-107) Carbon Dioxide Level 25 mmol/L (21-32) Anion Gap 9 (6-14) Blood Urea Nitrogen 21 mg/dL (8-26) Creatinine 1.5 mg/dL (0.7-1.3) Estimated GFR (Cockcroft-Gault) 55.4 Glucose Level 128 mg/dL (70-99) Calcium Level 8.4 mg/dL (8.5-10.1) Iron Level 13 ug/dL (65-175) Total Iron Binding Capacity 119 ug/dL (250-450) Iron Saturation 11 % (15-34) Laboratory Tests Test 02/14/19 10:05 02/14/19 16:35 02/14/19 19:00 02/14/19 21:02 Lactic Acid Level 1.5 mmol/L (0.4-2.0) Ferritin 522 ng/mL (26-388) Vitamin B12 Level > 2000 pg/mL (247-911) Glucose (Fingerstick) 139 mg/dL (70-99) 112 mg/dL (70-99) Urine Collection Type Unknown Urine Color Yellow Urine Clarity Clear Urine pH 5.0 Urine Specific [place] >=1.030 Urine Protein Negative mg/dL (NEG-TRACE) Urine Glucose (UA) Negative mg/dL (NEG) Urine Ketones (Stick) Trace mg/dL (NEG) Urine Blood Negative (NEG) Urine Nitrite Negative (NEG) Urine Bilirubin Small (NEG) Urine Urobilinogen Dipstick 1.0 mg/dL (0.2 mg/dL) Urine Leukocyte Esterase Negative (NEG) Urine RBC 0 /HPF (0-2) Urine WBC 1-4 /HPF (0-4) Urine Squamous Epithelial Cells Few /LPF Urine Amorphous Sediment Present /HPF Urine Bacteria 0 /HPF (0-FEW) Urine Mucus Slight /LPF Test 02/15/19 02:30 02/15/19 08:26 White Blood Count 19.4 x10^3/uL (4.0-11.0) Red Blood Count 3.24 x10^6/uL (4.30-5.70) Hemoglobin 9.9 g/dL (13.0-17.5) Hematocrit 29.8 % (39.0-53.0) Mean Corpuscular Volume 92 fL (79-100) Mean Corpuscular Hemoglobin 31 pg (25-35) Mean Corpuscular Hemoglobin Concent 33 g/dL (31-37) Red Cell Distribution Width 13.6 % (11.5-14.5) Platelet Count 424 x10^3/uL (140-400) Neutrophils (%) (Auto) 87 % (31-73) Lymphocytes (%) (Auto) 5 % (24-48) Monocytes (%) (Auto) 7 % (0-9) Eosinophils (%) (Auto) 0 % (0-3) Basophils (%) (Auto) 0 % (0-3) Neutrophils # (Auto) 16.9 x10^3/uL (1.8-7.7) Lymphocytes # (Auto) 1.0 x10^3/uL (1.0-4.8) Monocytes # (Auto) 1.4 x10^3/uL (0.0-1.1) Eosinophils # (Auto) 0.1 x10^3/uL (0.0-0.7) Basophils # (Auto) 0.1 x10^3/uL (0.0-0.2) Sodium Level 140 mmol/L (136-145) Potassium Level 4.3 mmol/L (3.5-5.1) Chloride Level 106 mmol/L (98-107) Carbon Dioxide Level 25 mmol/L (21-32) Anion Gap 9 (6-14) Blood Urea Nitrogen 21 mg/dL (8-26) Creatinine 1.5 mg/dL (0.7-1.3) Estimated GFR (Cockcroft-Gault) 55.4 Glucose Level 128 mg/dL (70-99) Calcium Level 8.4 mg/dL (8.5-10.1) Iron Level 13 ug/dL (65-175) Total Iron Binding Capacity 119 ug/dL (250-450) Iron Saturation 11 % (15-34) Glucose (Fingerstick) 116 mg/dL (70-99) Medications Current Medications Sodium Chloride 1,000 ml @ 1,000 mls/hr 1X ONCE IV Last administered on 02/12/19at 12:10; Start 02/12/19 at 12:00; Stop 02/12/19 at 12:59; Status DC Diltiazem HCl (Cardizem Iv Push) 10 mg 1X ONCE IVP Last administered on 02/12/19at 12:09; Start 02/12/19 at 12:00; Stop 02/12/19 at 12:01; Status DC Iohexol (Omnipaque 350 Mg/ml) 90 ml 1X ONCE IV Last administered on 02/12/19at 13:14; Start 02/12/19 at 13:00; Stop 02/12/19 at 13:01; Status DC Info (CONTRAST GIVEN -- Rx MONITORING) 1 each PRN DAILY PRN MC SEE COMMENTS; Start 02/12/19 at 13:00; Stop 02/14/19 at 12:59; Status DC Ondansetron HCl (Zofran) 4 mg PRN Q8HRS PRN IV NAUSEA/VOMITING; Start 02/12/19 at 13:15; Stop 02/13/19 at 13:14; Status DC Acetaminophen (Tylenol) 650 mg PRN Q4HRS PRN PO FEVER; Start 02/12/19 at 13:15; Stop 02/13/19 at 13:14; Status DC Doxazosin Mesylate (Cardura) 4 mg DAILY PO Last administered on 02/13/19at 09:33; Start 02/13/19 at 09:00; Stop 02/14/19 at 09:48; Status DC Amlodipine Besylate (Norvasc) 10 mg DAILY PO Last administered on 02/13/19at 12:02; Start 02/13/19 at 10:30; Stop 02/13/19 at 15:00; Status DC Doxazosin Mesylate (Cardura) 4 mg DAILY PO ; Start 02/14/19 at 09:00; Status UNV Losartan Potassium (Cozaar) 50 mg DAILY PO Last administered on 02/15/19at 08:30; Start 02/13/19 at 10:30 Metformin HCl (Glucophage) 500 mg DAILY08 PO ; Start 02/17/19 at 08:00 Insulin Glargine (Lantus Syringe) 12 unit QHS SQ Last administered on 02/14/19at 21:00; Start 02/13/19 at 21:00 Pantoprazole Sodium (Protonix) 40 mg DAILYAC PO Last administered on 02/15/19at 08:29; Start 02/13/19 at 10:30 Metoprolol Tartrate (Lopressor) 25 mg BID PO Last administered on 02/15/19at 08:30; Start 02/13/19 at 21:00 Piperacillin Sod/ Tazobactam Sod 3.375 gm/Sodium Chloride 50 ml @ 100 mls/hr Q6HRS IV Last administered on 02/15/19at 04:47; Start 02/14/19 at 12:00 Sodium Chloride 1,000 ml @ 1,000 mls/hr 1X ONCE IV Last administered on 02/14/19at 09:55; Start 02/14/19 at 09:45; Stop 02/14/19 at 10:44; Status DC Propofol 20 ml @ As Directed STK-MED ONCE IV ; Start 02/14/19 at 11:49; Stop 02/14/19 at 11:50; Status DC Lidocaine HCl (Lidocaine Pf 2% Vial) 5 ml STK-MED ONCE .ROUTE ; Start 02/14/19 at 11:49; Stop 02/14/19 at 11:50; Status DC Ringer's Solution 1,000 ml @ 75 mls/hr 1X ONCE IV Last administered on 02/14/19at 12:00; Start 02/14/19 at 12:00; Stop 02/15/19 at 01:19; Status DC Iohexol (Omnipaque 300 Mg/ml) 75 ml 1X ONCE IV ; Start 02/14/19 at 14:30; Stop 02/14/19 at 14:33; Status DC Iohexol (Omnipaque 240 Mg/ml) 50 ml 1X ONCE PO ; Start 02/14/19 at 14:30; Stop 02/14/19 at 14:33; Status DC Info (CONTRAST GIVEN -- Rx MONITORING) 1 each PRN DAILY PRN MC SEE COMMENTS; Start 02/14/19 at 14:45; Stop 02/16/19 at 14:44 Acetaminophen (Tylenol) 650 mg PRN Q6HRS PRN PO FEVER Last administered on 02/14/19at 21:43; Start 02/14/19 at 21:45 Active Scripts Active Reported Doxazosin Mesylate 4 Mg Tablet 4 Mg PO DAILY Basaglar Suleimanikpen U-100 (Insulin Glargine,Hum.rec.anlog) 100 Unit/1 Ml Insuln.pen 12 Units SQ HS Losartan Potassium 50 Mg Tablet 50 Mg PO DAILY Metformin Hcl 500 Mg Tablet 500 Mg PO DAILY Amlodipine Besylate 10 Mg Tablet 10 Mg PO DAILY Omeprazole 20 Mg Capsule.dr 20 Mg PO DAILY Atorvastatin Calcium 20 Mg Tablet 20 Mg PO HS Vitals/I & O Vital Sign - Last 24 Hours 02/14/19 02/14/19 02/14/19 02/14/19 09:30 10:43 11:48 11:54 Temp 97.5 97.3 97.5 97.3 Pulse 76 75 Resp 20 B/P (MAP) 75/47 (56) 107/58 (74) Pulse Ox 96 O2 Delivery Room Air 02/14/19 02/14/19 02/14/19 02/14/19 13:05 13:20 13:35 14:55 Temp 97.6 97.4 97.6 97.4 Pulse 71 74 77 72 Resp 18 18 20 16 B/P (MAP) 83/48 85/49 105/59 126/71 (89) Pulse Ox 97 95 94 98 O2 Delivery Nasal Cannula Room Air Room Air Room Air 02/14/19 02/14/19 02/14/19 02/14/19 15:25 15:28 15:43 15:58 Pulse 81 80 76 76 B/P (MAP) 109/62 (78) 104/64 (77) 114/58 (76) 109/56 (73) 02/14/19 02/14/19 02/14/19 02/14/19 16:28 16:58 17:28 17:58 Pulse 72 78 68 74 B/P (MAP) 118/65 (82) 122/70 (87) 113/65 (81) 118/65 (82) 02/14/19 02/14/19 02/14/19 02/14/19 19:57 20:00 20:59 21:00 Temp 98.2 99.6 98.2 99.6 Pulse 75 75 Resp 18 B/P (MAP) 131/63 (85) 131/63 Pulse Ox 99 O2 Delivery Room Air Room Air 02/14/19 02/15/19 02/15/19 02/15/19 23:19 03:59 07:00 08:30 Temp 100.0 98.5 97.4 100.0 98.5 97.4 Pulse 72 65 69 65 Resp 18 16 18 B/P (MAP) 119/58 (78) 112/62 (79) 131/74 (93) 112/62 Pulse Ox 93 97 98 O2 Delivery Room Air Room Air Room Air 02/15/19 08:30 Pulse 65 B/P (MAP) 112/62 Intake and Output 02/14/19 02/14/19 02/15/19 15:00 23:00 07:00 Intake Total 1000 ml 0 ml Balance 1000 ml 0 ml MALICK EVNAGELISTA MD Feb 15, 2019 09:17
--- NOTE | 2019-02-15 10:09 | PDOC ---
Provider Note Provider Note 73 yo man with several week history of difficulty swallowing and 24 pound wt loss. Admitted after syncopal event likely due to dehydration now better with IVF. Tolerating liquid diet well now. EGD yesterday mass at GE junction . Bx done with result pending. CT chest mass at GE junction with low density lesions in liver c/w mets. 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 He is not interested in PEG. Discussed roles of palliative RT and chemo. He desires both. Plan on palliative radiation to primary site then chemo to follow. Discussed with patient, girlfriend and Romero Bautista and . Will proceed with simulation today with 10 day course of radiation beginning tomorrow. HA OLIVAS MD Feb 15, 2019 10:09
--- NOTE | 2019-02-15 10:40 | PDOC ---
NAOMI DIANE RETAIL CLIENT SOLUTIONS ANALYST 02/15/19 1040: CARDIO Progress Notes Date and Time Date of Service 02/15/2019 Time of Evaluation 1020 Subjective Subjective: No Chest Pain, No shortness of breath, No Palpitations Vitals Vitals Vital Signs Date Time Temp Pulse Resp B/P (MAP) Pulse Ox O2 Delivery O2 Flow Rate FiO2 02/15/19 08:30 65 112/62 02/15/19 08:00 Room Air 02/15/19 07:00 97.4 18 98 97.4 Weight Weight [ ] Input and Output Intake and Output Intake and Output 02/15/19 07:00 Intake Total 1000 ml Balance 1000 ml Intake Oral 0 ml IV Total 1000 ml Laboratory Labs Laboratory Tests Test 02/14/19 16:35 02/14/19 19:00 02/14/19 21:02 02/15/19 02:30 Glucose (Fingerstick) 139 mg/dL (70-99) 112 mg/dL (70-99) Urine Collection Type Unknown Urine Color Yellow Urine Clarity Clear Urine pH 5.0 Urine Specific [place] >=1.030 Urine Protein Negative mg/dL (NEG-TRACE) Urine Glucose (UA) Negative mg/dL (NEG) Urine Ketones (Stick) Trace mg/dL (NEG) Urine Blood Negative (NEG) Urine Nitrite Negative (NEG) Urine Bilirubin Small (NEG) Urine Urobilinogen Dipstick 1.0 mg/dL (0.2 mg/dL) Urine Leukocyte Esterase Negative (NEG) Urine RBC 0 /HPF (0-2) Urine WBC 1-4 /HPF (0-4) Urine Squamous Epithelial Cells Few /LPF Urine Amorphous Sediment Present /HPF Urine Bacteria 0 /HPF (0-FEW) Urine Mucus Slight /LPF White Blood Count 19.4 x10^3/uL (4.0-11.0) Red Blood Count 3.24 x10^6/uL (4.30-5.70) Hemoglobin 9.9 g/dL (13.0-17.5) Hematocrit 29.8 % (39.0-53.0) Mean Corpuscular Volume 92 fL (79-100) Mean Corpuscular Hemoglobin 31 pg (25-35) Mean Corpuscular Hemoglobin Concent 33 g/dL (31-37) Red Cell Distribution Width 13.6 % (11.5-14.5) Platelet Count 424 x10^3/uL (140-400) Neutrophils (%) (Auto) 87 % (31-73) Lymphocytes (%) (Auto) 5 % (24-48) Monocytes (%) (Auto) 7 % (0-9) Eosinophils (%) (Auto) 0 % (0-3) Basophils (%) (Auto) 0 % (0-3) Neutrophils # (Auto) 16.9 x10^3/uL (1.8-7.7) Lymphocytes # (Auto) 1.0 x10^3/uL (1.0-4.8) Monocytes # (Auto) 1.4 x10^3/uL (0.0-1.1) Eosinophils # (Auto) 0.1 x10^3/uL (0.0-0.7) Basophils # (Auto) 0.1 x10^3/uL (0.0-0.2) Sodium Level 140 mmol/L (136-145) Potassium Level 4.3 mmol/L (3.5-5.1) Chloride Level 106 mmol/L (98-107) Carbon Dioxide Level 25 mmol/L (21-32) Anion Gap 9 (6-14) Blood Urea Nitrogen 21 mg/dL (8-26) Creatinine 1.5 mg/dL (0.7-1.3) Estimated GFR (Cockcroft-Gault) 55.4 Glucose Level 128 mg/dL (70-99) Calcium Level 8.4 mg/dL (8.5-10.1) Iron Level 13 ug/dL (65-175) Total Iron Binding Capacity 119 ug/dL (250-450) Iron Saturation 11 % (15-34) Test 02/15/19 08:26 Glucose (Fingerstick) 116 mg/dL (70-99) Physical Exam HEENT: Neck Supple W Full Motion LUNGS: Clear to Auscultation Heart: S1S2, RRR (SR) Abdomen: Soft N/T Extremities: No Edema Neurology: alert, oriented, follow commands Assessment Assessment 1. PAFIB; New . mostly maintaining SR. EF and WM nml 2. Hypertension; low normotensive 3. Hyperlipidemia; statin therapy 4. Diabetes, II; as per PCP 5. Esophageal mass with liver mets: Radiation therapy with possible chemo. Hemonc following 6. Fe def anemia with thrombocytosis Recommendations 1. Continue metoprolol for rate control. Start on eliquis for stroke prevention 2. Follow up in office as scheduled. SUNITHA FRANCIS MD 02/15/19 1712: CARDIO Progress Notes Assessment Assessment Patient seen and examined. Agree with STRESS ANALYST's assessment and plan. Maintaining sinus rhythm. Agree with initiating eliquis and follow-up in 1 month. NAOMI DIANE APRN Feb 15, 2019 10:40 SUNITHA FRANCIS MD Feb 15, 2019 17:12
[2019-02-15 11:00] VITALS: BP 129/64
[2019-02-15] MEDS ORDERED: ANTI-COAG MONITOR BY PHARMACY. MC PRN (14:00)
[2019-02-15 15:00] VITALS: BP 144/69
[2019-02-15] MEDS ORDERED: APIX5TAB PO (15:18)
[2019-02-15] MEDS ORDERED: METO25TA4 PO (15:18)
[2019-02-15] MEDS ORDERED: TAMS0.4C97 PO (15:18)
[2019-02-15] MEDS ORDERED: CLIN150C14 PO (15:21)
[2019-02-15] MEDS: ACETAMINOPHEN 325 MG TABLET. PO PRN (15:25)
--- NOTE | 2019-02-15 17:24 | PDOC3 ---
Discharge Summary [facility] Date of Admission: Feb 12, 2019 Discharge Date: Feb 15, 2019 Admitting Diagnosis Afib/RVR Final Diagnosis Atrial fibrillation with RVR Syncope and collapse metastatic esophageal cancer CONSULTS cardiology, oncology, radiation oncology, ID Procedures esophageal biopsy, radiation therapy Brief Hospital Course Mr. Aranda is a 73 old who presented with near syncope and found to be in Afib with RVR and seen by cardiology and medicated for rate control which was achieved and is now being anticoagulated. He was also found to have an esophageal mass with what appears to be liver mets and had an EGD with biopsy done and awaiting path for chemo but received his first dose of radiation today. He was also noted to be febrile with a leukocytosis but other than poor dentition no source of infection was found but he was prophylactically placed on IV antibiotics and seen by ID Disposition home CONDITION AT DISCHARGE: Improved, Stable Diet full liquid protein drinks Scheduled Apixaban (Eliquis), 5 MG PO BID Atorvastatin Calcium (Atorvastatin Calcium), 20 MG PO HS, (Reported) Clindamycin Hcl (Clindamycin Hcl), 150 MG PO TID Insulin Glargine,Hum.rec.anlog (Basaglar Kwikpen U-100), 12 UNITS SQ HS, (Reported) Losartan Potassium (Losartan Potassium), 50 MG PO DAILY, (Reported) Metformin Hcl (Metformin Hcl), 500 MG PO DAILY, (Reported) Metoprolol Tartrate (Metoprolol Tartrate), 25 MG PO BID Omeprazole (Omeprazole), 20 MG PO DAILY, (Reported) Tamsulosin Hcl (Flomax), 1 CAP PO DAILY Discontinued Medications Amlodipine Besylate (Amlodipine Besylate), 10 MG PO DAILY, (Reported) Doxazosin Mesylate (Doxazosin Mesylate), 4 MG PO DAILY, (Reported) Follow Up Dr Cheng for radiation therapy x 10 doses, Dr. Bautista next week to discuss chemo, Cardiology in the office and myself within 2 weeks García DOMINGUEZ MD Feb 15, 2019 17:23
--- NOTE | 2019-02-15 18:05 | RAD ---
Nuclear medicine whole body bone scan History: Staging esophageal cancer. Comparison: CT abdomen and pelvis without contrast, prior day. Technique: Examination performed after intravenous administration of 25 mCi Technetium 99m MDP. Images of the whole body were obtained in the anterior and posterior projections. Findings: Tracer uptake in the spine is mildly heterogeneous. Tracer uptake in ribs and pelvic bones is symmetric. No focal suspicious increased or decreased tracer uptake is identified. Symmetric tracer uptake sternoclavicular, acromioclavicular, and glenohumeral joints is probably degenerative. Tracer uptake at the base of the thumbs bilaterally is probably degenerative. Tracer distribution in the soft tissues appears normal. There is contamination/artifact that is likely external to the patient left lateral abdomen. This may relate to injection site. IMPRESSION: No scintigraphic evidence of bone metastasis. Electronically signed by: Anatoliy Mendez MD (02/15/2019 6:02 PM) [id number]
[2019-02-15] MEDS ORDERED: APIXABAN 5 MG TABLET. PO SCH (21:00)
--- NOTE | 2019-02-16 15:07 | PATHOLOGY ---
[facility] Accession Number: [id number] . 01 Material submitted: . esophagus - BX ESOPHAGEAL MASS . 01 Clinical history: . Pre-OP DX: Dysphagia, esophageal mass on CT scan Post-OP DX: Esophageal mass, rule out malignancy . 02 Diagnosis: Esophageal biopsies, esophageal mass: - ADENOCARCINOMA, MODERATELY TO POORLY DIFFERENTIATED. SEE COMMENT. (JPM:foley artist; 02/16/2019) MBR 02/16/2019 1119 Local . 02 Comment: Sections of the esophageal mass biopsy reveal segments of esophageal and esophagogastric mucosa. Several of the biopsy segments reveal a malignant epithelial neoplasm. The neoplasm is composed of well-formed and focally irregular ragged glands which are lined by atypical cells possessing enlarged hyperchromatic nuclei containing prominent nucleoli. The malignant glands infiltrate a reactive and inflamed stroma and focally undermine the overlying squamous esophageal mucosa. Mitotic figures are regularly demonstrated. There is focal ulceration. The morphologic findings are supportive of the diagnosis of a moderately to poorly differentiated adenocarcinoma. The results are reported to Dr. Francisco on 02/16/19 at 1:30 PM. The case is also examined by Dr. Curry, who concurs with the diagnosis. (JPM:foley artist; 02/16/2019) . 02 Electronically signed: . Errol Diaz MD, Pathologist NPI- [id number] . 01 Gross description: . Received in formalin labeled "Gael Aranda, ARIE esophageal mass," are multiple segments of montero soft tissue measuring 1.0 x 0.8 x 0.1 cm in aggregate dimensions. The specimen is filtered and entirely submitted in cassette A1. (TSD; 02/15/2019) TOB/TOB 02/15/2019 1750 Local . 02 Pathologist provided ICD-10: C15.9 . 02 CPT . 727083 Specimen Comment: A courtesy copy of this report has been sent to [phone] Specimen Comment: [id number], Specimen Comment: Report sent to ,DR OWEN,DR DOMINGUEZ / DR RAIN Performed at: 01 [facility] [address] [facility] [address], [place] [id number] MD Cyril Gonzalez MD Phone: [phone] Performed at: 02 [facility] [address] [place], [place] [id number] MD Errol Diaz MD Phone: [phone]
[2019-02-17] MEDS ORDERED: metFORMIN 500 MG TABLET PO SCH (08:00)
== END 2019-02-15 16:20 | disposition home or self-care (01) | DRG 374 ==
LOC: ER 11:28 → 2 NORTH 12:58
PROVIDERS: ADMIT Family Medicine; ATTEND Family Medicine
PROC: 0DB58ZX Excision of Esophagus, Via Natural or Artificial Opening Endoscopic, Diagnostic (ICD-10-PCS; principal; 2019-02-14 12:45)
DX: C15.9 Malignant neoplasm of esophagus, unspecified (principal); N17.0 Acute kidney failure with tubular necrosis; E46 Unspecified protein-calorie malnutrition; C78.7 Secondary malignant neoplasm of liver and intrahepatic bile duct; I48.0 Paroxysmal atrial fibrillation; K21.9 Gastro-esophageal reflux disease without esophagitis; N18.9 Chronic kidney disease, unspecified; D72.829 Elevated white blood cell count, unspecified; I12.9 Hypertensive chronic kidney disease with stage 1 through stage 4 chronic kidney disease, or unspecified chronic kidney disease; K22.2 Esophageal obstruction; E78.5 Hyperlipidemia, unspecified; N40.0 Benign prostatic hyperplasia without lower urinary tract symptoms; H54.62 Unqualified visual loss, left eye, normal vision right eye; E11.22 Type 2 diabetes mellitus with diabetic chronic kidney disease; G89.29 Other chronic pain; M19.012 Primary osteoarthritis, left shoulder; M19.011 Primary osteoarthritis, right shoulder; M17.0 Bilateral primary osteoarthritis of knee; K59.00 Constipation, unspecified; K08.89 Other specified disorders of teeth and supporting structures; D47.3 Essential (hemorrhagic) thrombocythemia; D50.9 Iron deficiency anemia, unspecified; Z86.73 Personal history of transient ischemic attack (TIA), and cerebral infarction without residual deficits; Z79.4 Long term (current) use of insulin; Z79.01 Long term (current) use of anticoagulants; Z68.31 Body mass index [BMI] 31.0-31.9, adult
CPT/HCPCS: 36415; 43239; 71275; 74177; 77290; 77334; 78306; 80048; 80053; 80061; 81001; 82378; 82607; 82728; 82962; 83540; 83550; 83605; 83735; 84145; 84443; 84484; 85007; 85025; 85045; 85379; 87040; 88305; 93005; 93306; 96361; 96374; A9503; J1815; J2001; J2543; J2704; J3490; J7030; J7120; Q9967; 99285-25; G0378

== ENCOUNTER 2019-04-04 15:34 | Inpatient (IN) | payer OTHER ==
[~2019-04-04] VITALS: Ht 167.6 cm; Wt 90.7 kg
[~2019-04-04 15:34] MED LIST: ACET325T21 PO; AMLO10TA8 PO; APIX5TAB PO; ATOR20TA58 PO; ATRO2DRO3 SL; CLIN150C14 PO; DOXA4TAB3 PO; FURO-69 PO; FURO10VI IVP; INSU100I32 SQ; IPRA3AMP29 NEB; LORA2ORA7 SL; LOSA50TA15 PO; METF500T16 PO; METO25TA4 PO; MORP100S3 PO/SL; OMEP-229 PO; PRED50TA PO; TAMS0.4C97 PO
[2019-04-04] MEDS ORDERED: LORazepam INTENSOL 2 MG/ML ORAL.CONC SL PRN (16:00)
[2019-04-04] MEDS ORDERED: ATROPINE 1% OPHTH SOLUTION 5ML BOTTLE. SL PRN ×2 (16:00→19:30)
[2019-04-04] MEDS ORDERED: FUROSEMIDE 20 MG/2 ML VIAL. IVP PRN (16:00)
[2019-04-04] MEDS ORDERED: MORPHINE SULFATE 20 MG/ML CONC SOLUTION. PO/SL PRN (16:00)
[2019-04-04] MEDS ORDERED: ACETAMINOPHEN 325 MG TABLET. PO PRN (16:00)
[2019-04-04] MEDS ORDERED: ALBUTEROL SULFATE 2.5 MG/3 ML NEBU. NEB PRN (16:15)
--- NOTE | 2019-04-04 19:00 | NUR ---
gloria from [facility]/ hospice spoke with dr ryan and received orders which i put in the computer for her. lcrn
[2019-04-04] MEDS ORDERED: ONDANSETRON ODT 4 MG TAB.RAPDIS. PO PRN (19:30)
[2019-04-04] MEDS ORDERED: ONDANSETRON PF 4 MG/2 ML VIAL. IVP PRN (19:45)
[2019-04-04 19:56] VITALS: BP 112/68
[2019-04-04] MEDS: INSULIN GLARGINE SYRINGE. SQ SCH (21:19)
[2019-04-04] MEDS: MORPHINE SULFATE 20 MG/ML CONC SOLUTION. PO/SL PRN (21:20)
[2019-04-05] MEDS: MORPHINE SULFATE 20 MG/ML CONC SOLUTION. PO/SL PRN ×3 (06:02→13:33)
[2019-04-05 07:00] VITALS: BP 113/72
[2019-04-05] MEDS: PANTOPRAZOLE 40 MG TABLET.DR. PO SCH (08:59)
[2019-04-05] MEDS: TAMSULOSIN 0.4 MG CAP.ER.24H. PO SCH (08:59)
[2019-04-05] MEDS: FUROSEMIDE 20 MG TABLET PO SCH (08:59)
[2019-04-05 19:00] VITALS: BP 108/64
[2019-04-05] MEDS: MORPHINE SULFATE 2 MG/ML VIAL. IV PRN ×2 (19:38→21:43)
--- NOTE | 2019-04-05 20:41 | NUR ---
Pt. transferred up to this unit around 1744. This nurse helped to make pt. comfortable and organize pt. room. This nurse oriented pt. girlfriend to unit, bathroom, call light, and unit policies. Pt. sleeping and unable to orient at this time. Will continue to monitor.
[2019-04-05] MEDS: INSULIN GLARGINE SYRINGE. SQ SCH (21:38)
[2019-04-06] MEDS: MORPHINE SULFATE 2 MG/ML VIAL. IV PRN ×7 (01:34→23:18)
[2019-04-06] MEDS: LORazepam INTENSOL 2 MG/ML ORAL.CONC SL PRN ×3 (03:01→21:15)
[2019-04-06 07:00] VITALS: BP 139/60
[2019-04-06] MEDS: PANTOPRAZOLE 40 MG TABLET.DR. PO SCH (07:30)
[2019-04-06] MEDS: FUROSEMIDE 20 MG TABLET PO SCH (09:34)
[2019-04-06] MEDS: TAMSULOSIN 0.4 MG CAP.ER.24H. PO SCH (09:34)
--- NOTE | 2019-04-06 10:02 | PDOC1 ---
History and Physical Date of Admission Date of Admission DATE: 04/06/19 TIME: 09:58 Identification/Chief Complaint Chief Complaint hospice Source Source: Caregiver, Chart review, Patient History of Present Illness History of Present Illness 73 AA male, was under the care of dr xiong in icu for stage 4 gastric CA on palliative chemo, he has indwelling PEG and tFS, He was admitted for a fib RVR among his other medical probs, Then dcd 04/04 and now admitted under inpt hospice to my care. HE looks comfortable, HE is in the basic hospice packet,. BS are still being checked and insulin being given, When I asked the family about this (not adding comfort), they could not commit to stopping accu checks, so i decided CPM HE is DNR Pt on verbal VS holding Past Medical History Cardiovascular: AFIB, HTN GI: GERD, Other Musculoskeletal: Osteoarthritis Endocrine: Diabetes Past Surgical History Past Surgical History: Other (PEG), No pertinent history Family History Family History: Hypertension Social History Smoke: No ALCOHOL: none Drugs: None Current Medications Current Medications Current Medications Acetaminophen (Tylenol) 650 mg PRN Q4HRS PRN PO MILD PAIN or FEVER; Start 04/04/19 at 16:00 Atropine Sulfate (Isopto Atropine) 2 drop PRN Q4HRS PRN SL SECRETIONS; Start 04/04/19 at 16:00; Stop 04/04/19 at 19:31; Status DC Furosemide (Lasix) 40 mg PRN BID PRN IVP shortness of breath; Start 04/04/19 at 16:00 Furosemide (Lasix) 20 mg DAILY PO Last administered on 04/06/19at 09:34; Start 04/05/19 at 09:00 Albuterol Sulfate (Ventolin Neb Soln) 2.5 mg PRN Q4HRS PRN NEB SHORTNESS OF BREATH; Start 04/04/19 at 16:15 Lorazepam (Ativan Intensol) 0.5 mg PRN Q6HRS PRN SL ANXIETY / AGITATION; Start 04/04/19 at 16:00; Stop 04/04/19 at 19:31; Status DC Morphine Sulfate (Roxanol Conc) 5 mg PRN Q2HRS PRN PO/SL MODERATE PAIN OR DYSPNEA Last administered on 04/04/19at 16:41; Start 04/04/19 at 16:00; Stop 04/04/19 at 19:31; Status DC Tamsulosin HCl (Flomax) 0.4 mg DAILY PO Last administered on 04/06/19 09:34; Start 04/05/19 at 09:00 Insulin Glargine (Lantus Syringe) 15 unit QHS SQ Last administered on 04/05/19at 21:38; Start 04/04/19 at 21:00 Pantoprazole Sodium (Protonix) 40 mg DAILYAC PO Last administered on 04/05/19at 08:59; Start 04/05/19 at 07:30 Atropine Sulfate (Isopto Atropine) 3 drop PRN Q3HRS PRN SL SECRETIONS; Start 04/04/19 at 19:30 Lorazepam (Ativan Intensol) 1 mg PRN Q4HRS PRN SL ANXIETY / AGITATION Last administered on 04/06/19at 03:01; Start 04/04/19 at 19:30 Morphine Sulfate (Roxanol Conc) 10 mg PRN Q2HRS PRN PO/SL MODERATE PAIN OR DYSPNEA Last administered on 04/05/19at 13:33; Start 04/04/19 at 19:30 Ondansetron HCl (Zofran Odt) 4 mg PRN Q4HRS PRN PO NAUSEA/VOMITING; Start 04/04/19 at 19:30 Morphine Sulfate (Morphine Sulfate) 2 mg PRN Q2HR PRN IV PAIN Last administered on 04/06/19at 07:35; Start 04/04/19 at 19:30 Ondansetron HCl (Zofran) 4 mg PRN Q4HRS PRN IVP NAUSEA/VOMITING; Start 04/04/19 at 19:45 Active Scripts Active Atropine Sulfate 2 Ml Drops 2 Drop SL PRN Q4HRS PRN 30 Days Furosemide 10 Mg/1 Ml Vial 40 Mg IVP PRN BID PRN 30 Days Lorazepam Intensol (Lorazepam) 2 Mg/1 Ml Oral.conc 0.5 Mg SL PRN Q6HRS PRN 30 Days Morphine Sulfate 100 Mg/5 Ml Solution 5 Mg PO/SL PRN Q2HRS PRN 30 Days Flomax (Tamsulosin Hcl) 0.4 Mg Cap.er.24h 1 Cap PO DAILY 30 Days Reported Lasix (Furosemide) 20 Mg Tablet 1 Tab PO DAILY 30 Days Duoneb 0.5-3(2.5) Mg/3 Ml (Albuterol/Ipratropium) 3 Ml Ampul.neb 3 Ml NEB PRN Q4HRS PRN Acetaminophen 325 Mg Tablet 2 Tab PO PRN Q4HRS PRN 24 Days Basaglar Kwikpen U-100 (Insulin Glargine,Hum.rec.anlog) 100 Unit/1 Ml Insuln.pen 15 Unit SQ HS Omeprazole 20 Mg Capsule.dr 20 Mg PO DAILY Allergies Allergies: Coded Allergies: No Known Drug Allergies (Unverified , 03/18/19) ROS Review of System non verbal Physical Exam General: No acute distress HEENT: Atraumatic, Other (dimnished bases, equal air betry) Lungs: Normal air movement Heart: no gallops, no murmurs Abdomen: Normal bowel sounds, Soft, No tenderness, No hepatosplenomegaly, No masses, Other (PEG tube) Male Genitals Exam: normal genitalia, normal prostate Rectal Exam: not examined PELVIC: Nml ext genitalia Extremities: No clubbing, No cyanosis, No edema, Normal pulses, No tenderness/swelling Skin: No rashes, No breakdown, No significant lesion Vitals Vitals Vital Signs Date Time Temp Pulse Resp B/P (MAP) Pulse Ox O2 Delivery O2 Flow Rate FiO2 04/06/19 07:35 20 96 Nasal Cannula 1.0 04/06/19 07:00 99.3 100 139/60 (86) 99.3 Labs Labs Laboratory Tests Test 04/04/19 21:15 04/05/19 05:59 04/05/19 12:08 04/05/19 21:34 Glucose (Fingerstick) 195 mg/dL (70-99) 162 mg/dL (70-99) 192 mg/dL (70-99) 159 mg/dL (70-99) Test 04/06/19 08:12 Glucose (Fingerstick) 135 mg/dL (70-99) Laboratory Tests Test 04/05/19 12:08 04/05/19 21:34 04/06/19 08:12 Glucose (Fingerstick) 192 mg/dL (70-99) 159 mg/dL (70-99) 135 mg/dL (70-99) VTE Prophylaxis Ordered VTE Prophylaxis Devices: Yes VTE Pharmacological Prophylaxi: Yes Assessment/Plan Assessment/Plan Stage 4 gastric CA was on palliative chemos s/p A Fib RVR GERD, OA, DM 2 insulin req NOn verbal Indwelling PEG DNR HoSPICe PLAN: DNR, hospice packet COnt Tf per fam request COnt Accuchecks and insulin per fam request Dw family GRAHAM VERNON MD Apr 06, 2019 10:02
[2019-04-06 19:00] VITALS: BP 120/72
[2019-04-06] MEDS: INSULIN GLARGINE SYRINGE. SQ SCH (21:00)
[2019-04-06] MEDS: MORPHINE SULFATE 20 MG/ML CONC SOLUTION. PO/SL PRN (22:04)
[2019-04-07] MEDS: MORPHINE SULFATE 2 MG/ML VIAL. IV PRN ×6 (02:41→23:02)
[2019-04-07] MEDS: LORazepam INTENSOL 2 MG/ML ORAL.CONC SL PRN (03:20)
[2019-04-07 07:00] VITALS: BP 120/71
[2019-04-07] MEDS: FUROSEMIDE 20 MG TABLET PO SCH (10:07)
[2019-04-07] MEDS: PANTOPRAZOLE 40 MG TABLET.DR. PO SCH (10:07)
[2019-04-07] MEDS: TAMSULOSIN 0.4 MG CAP.ER.24H. PO SCH (10:08)
--- NOTE | 2019-04-07 11:06 | PDOC ---
PROGRESS NOTES History of Present Illness History of Present Illness VTE Prophylaxis Ordered VTE Prophylaxis Devices: Yes VTE Pharmacological Prophylaxi: Yes Assessment/Plan Assessment/Plan Stage 4 gastric CA post palliative chemos s/p A Fib RVR GERD, OA, DM 2 insulin req NOn verbal Indwelling PEG DNR HoSPICe visit PLAN: DNR, hospice intake COnt Tf per fam request COnt Accuchecks and insulin per fam request Dw family visit for hospice 04/07 37 min pt exam, chart review, > 50% of time spent with exam, chart review, pt care coordination Vitals Vitals Vital Signs Date Time Temp Pulse Resp B/P (MAP) Pulse Ox O2 Delivery O2 Flow Rate FiO2 04/07/19 09:12 21 92 Nasal Cannula 04/07/19 07:00 97.5 108 120/71 (87) 1.0 97.5 Physical Exam General: Cooperative, No acute distress, mild distress Lungs: Other Abdomen: Normal bowel sounds, Soft, No tenderness, No hepatosplenomegaly, No masses, Other (PEG tube) Extremities: No clubbing, No cyanosis, No edema, Normal pulses, No tenderness/swelling Skin: No rashes, No breakdown, No significant lesion Labs LABS Laboratory Tests Test 04/06/19 20:37 04/07/19 07:40 Glucose (Fingerstick) 158 mg/dL (70-99) 155 mg/dL (70-99) Comment Review of Relevant I have reviewed the following items momo (where applicable) has been applied. Labs Laboratory Tests Test 04/05/19 12:08 04/05/19 21:34 04/06/19 08:12 04/06/19 20:37 Glucose (Fingerstick) 192 mg/dL (70-99) 159 mg/dL (70-99) 135 mg/dL (70-99) 158 mg/dL (70-99) Test 04/07/19 07:40 Glucose (Fingerstick) 155 mg/dL (70-99) Laboratory Tests Test 04/06/19 20:37 04/07/19 07:40 Glucose (Fingerstick) 158 mg/dL (70-99) 155 mg/dL (70-99) Medications Current Medications Acetaminophen (Tylenol) 650 mg PRN Q4HRS PRN PO MILD PAIN or FEVER; Start 04/04/19 at 16:00 Atropine Sulfate (Isopto Atropine) 2 drop PRN Q4HRS PRN SL SECRETIONS; Start 04/04/19 at 16:00; Stop 04/04/19 at 19:31; Status DC Furosemide (Lasix) 40 mg PRN BID PRN IVP shortness of breath; Start 04/04/19 at 16:00 Furosemide (Lasix) 20 mg DAILY PO Last administered on 04/07/19at 10:07; Start 04/05/19 at 09:00 Albuterol Sulfate (Ventolin Neb Soln) 2.5 mg PRN Q4HRS PRN NEB SHORTNESS OF BREATH; Start 04/04/19 at 16:15 Lorazepam (Ativan Intensol) 0.5 mg PRN Q6HRS PRN SL ANXIETY / AGITATION; Start 04/04/19 at 16:00; Stop 04/04/19 at 19:31; Status DC Morphine Sulfate (Roxanol Conc) 5 mg PRN Q2HRS PRN PO/SL MODERATE PAIN OR DYSPNEA Last administered on 04/04/19at 16:41; Start 04/04/19 at 16:00; Stop 04/04/19 at 19:31; Status DC Tamsulosin HCl (Flomax) 0.4 mg DAILY PO Last administered on 04/07/19at 10:08; Start 04/05/19 at 09:00 Insulin Glargine (Lantus Syringe) 15 unit QHS SQ Last administered on 04/05/19at 21:38; Start 04/04/19 at 21:00; Stop 04/06/19 at 20:47; Status DC Pantoprazole Sodium (Protonix) 40 mg DAILYAC PO Last administered on 04/07/19at 10:07; Start 04/05/19 at 07:30 Atropine Sulfate (Isopto Atropine) 3 drop PRN Q3HRS PRN SL SECRETIONS; Start 04/04/19 at 19:30 Lorazepam (Ativan Intensol) 1 mg PRN Q4HRS PRN SL ANXIETY / AGITATION Last administered on 04/07/19at 03:20; Start 04/04/19 at 19:30 Morphine Sulfate (Roxanol Conc) 10 mg PRN Q2HRS PRN PO/SL MODERATE PAIN OR DYSPNEA Last administered on 04/06/19at 22:04; Start 04/04/19 at 19:30 Ondansetron HCl (Zofran Odt) 4 mg PRN Q4HRS PRN PO NAUSEA/VOMITING; Start 04/04/19 at 19:30 Morphine Sulfate (Morphine Sulfate) 2 mg PRN Q2HR PRN IV PAIN Last administered on 04/07/19at 09:12; Start 04/04/19 at 19:30 Ondansetron HCl (Zofran) 4 mg PRN Q4HRS PRN IVP NAUSEA/VOMITING; Start 04/04/19 at 19:45 Insulin Glargine (Lantus Syringe) 15 unit QHS SQ Last administered on 04/06/19at 21:00; Start 04/06/19 at 21:00 Active Scripts Active Atropine Sulfate 2 Ml Drops 2 Drop SL PRN Q4HRS PRN 30 Days Furosemide 10 Mg/1 Ml Vial 40 Mg IVP PRN BID PRN 30 Days Lorazepam Intensol (Lorazepam) 2 Mg/1 Ml Oral.conc 0.5 Mg SL PRN Q6HRS PRN 30 Days Morphine Sulfate 100 Mg/5 Ml Solution 5 Mg PO/SL PRN Q2HRS PRN 30 Days Flomax (Tamsulosin Hcl) 0.4 Mg Cap.er.24h 1 Cap PO DAILY 30 Days Reported Lasix (Furosemide) 20 Mg Tablet 1 Tab PO DAILY 30 Days Duoneb 0.5-3(2.5) Mg/3 Ml (Albuterol/Ipratropium) 3 Ml Ampul.neb 3 Ml NEB PRN Q4HRS PRN Acetaminophen 325 Mg Tablet 2 Tab PO PRN Q4HRS PRN 24 Days Basaglar Kwikpen U-100 (Insulin Glargine,Hum.rec.anlog) 100 Unit/1 Ml Insuln.pen 15 Unit SQ HS Omeprazole 20 Mg Capsule.dr 20 Mg PO DAILY Vitals/I & O Vital Sign - Last 24 Hours 04/06/19 04/06/19 04/06/19 04/06/19 11:38 12:12 14:46 15:25 Resp 20 20 16 21 Pulse Ox 1 92 1 93 O2 Delivery Nasal Cannula Nasal Cannula Nasal Cannula Nasal Cannula O2 Flow Rate 1.0 1.0 1.0 04/06/19 04/06/19 04/06/19 04/06/19 17:37 18:50 19:00 20:05 Temp 98.1 98.1 Pulse 64 Resp 21 18 18 B/P (MAP) 120/72 (88) Pulse Ox 93 93 94 O2 Delivery Nasal Cannula Nasal Cannula Nasal Cannula O2 Flow Rate 1.0 1.0 1.0 1.0 04/06/19 04/06/19 04/06/19 04/06/19 20:31 21:16 22:04 23:13 Resp 20 20 Pulse Ox 93 93 93 93 O2 Delivery Nasal Cannula Nasal Cannula Nasal Cannula Nasal Cannula O2 Flow Rate 1.0 1.0 1.0 1.0 04/06/19 04/07/19 04/07/19 04/07/19 23:18 00:03 02:41 03:47 Resp 20 18 20 20 Pulse Ox 93 93 93 93 O2 Delivery Nasal Cannula Nasal Cannula Nasal Cannula O2 Flow Rate 1.0 1.0 1.0 1.0 04/07/19 04/07/19 04/07/19 04/07/19 05:19 05:53 07:00 09:12 Temp 97.5 97.5 Pulse 108 Resp 20 28 21 B/P (MAP) 120/71 (87) Pulse Ox 93 93 92 92 O2 Delivery Nasal Cannula Nasal Cannula Nasal Cannula Nasal Cannula O2 Flow Rate 1.0 1.0 1.0 Intake and Output 04/06/19 04/06/19 04/07/19 15:00 23:00 07:00 Intake Total 350 ml 175 ml 950 ml Output Total 500 ml Balance -150 ml 175 ml 950 ml Nutrition Consultation Dietary Evaluation: Recommendations by RD: Dietary education by RD Comments: Nutrition as appropriate per goals of care Expected Outcomes/Goals: Nutrition as appropriate per goals of hospice care Interpretation of weight loss: >7.5% in 3 months Malnutrition Findings: Food and Nutrition Intake (Mod: <75% est energy req 7days Body Fat Depletion (Non Severe: Mild Depletion Weight Status: Overweight ANASTASIA MURRELL MD Apr 07, 2019 11:06
[2019-04-07 19:00] VITALS: BP 113/65
[2019-04-07] MEDS: INSULIN GLARGINE SYRINGE. SQ SCH (21:04)
[2019-04-08] MEDS: MORPHINE SULFATE 2 MG/ML VIAL. IV PRN ×2 (03:53→11:06)
[2019-04-08 07:00] VITALS: BP 129/55
[2019-04-08] MEDS: FUROSEMIDE 20 MG TABLET PO SCH (09:00)
[2019-04-08] MEDS: MORPHINE SULFATE 20 MG/ML CONC SOLUTION. PO/SL PRN ×2 (10:05→12:07)
--- NOTE | 2019-04-08 10:39 | PDOC ---
PROGRESS NOTES History of Present Illness History of Present Illness VTE Prophylaxis Ordered VTE Prophylaxis Devices: Yes VTE Pharmacological Prophylaxi: Yes SUMMARY ======== Assessment/Plan Stage 4 gastric CA post palliative chemos s/p A Fib RVR GERD, OA, DM 2 insulin req NOn verbal Indwelling PEG DNR HoSPICe visit PLAN: DNR, hospice intake COnt Tf per fam request COnt Accuchecks and insulin per fam request Dw family visit for hospice 04/08 PT THIS AFTERNOON 33 min pt exam, chart review, > 50% of time spent with exam, chart review, pt care coordination Vitals Vitals Vital Signs Date Time Temp Pulse Resp B/P (MAP) Pulse Ox O2 Delivery O2 Flow Rate FiO2 04/08/19 07:00 98.3 109 30 129/55 (79) 93 Nasal Cannula 1.0 98.3 Physical Exam General: Cooperative, No acute distress, mild distress Lungs: Other Abdomen: No tenderness, No hepatosplenomegaly, No masses, Other (PEG tube) Extremities: No clubbing, No cyanosis, No edema, Normal pulses, No tendernes s/swelling Skin: No rashes, No breakdown, No significant lesion Labs LABS Laboratory Tests Test 04/07/19 21:09 04/08/19 07:41 Glucose (Fingerstick) 156 mg/dL (70-99) 159 mg/dL (70-99) Comment Review of Relevant I have reviewed the following items momo (where applicable) has been applied. Labs Laboratory Tests Test 04/06/19 20:37 04/07/19 07:40 04/07/19 21:09 04/08/19 07:41 Glucose (Fingerstick) 158 mg/dL (70-99) 155 mg/dL (70-99) 156 mg/dL (70-99) 159 mg/dL (70-99) Laboratory Tests Test 04/07/19 21:09 04/08/19 07:41 Glucose (Fingerstick) 156 mg/dL (70-99) 159 mg/dL (70-99) Medications Current Medications Acetaminophen (Tylenol) 650 mg PRN Q4HRS PRN PO MILD PAIN or FEVER; Start 04/04/19 at 16:00 Atropine Sulfate (Isopto Atropine) 2 drop PRN Q4HRS PRN SL SECRETIONS; Start 04/04/19 at 16:00; Stop 04/04/19 at 19:31; Status DC Furosemide (Lasix) 40 mg PRN BID PRN IVP shortness of breath Last administered on 04/08/19at 08:07; Start 04/04/19 at 16:00 Furosemide (Lasix) 20 mg DAILY PO Last administered on 04/07/19at 10:07; Start 04/05/19 at 09:00 Albuterol Sulfate (Ventolin Neb Soln) 2.5 mg PRN Q4HRS PRN NEB SHORTNESS OF BREATH; Start 04/04/19 at 16:15 Lorazepam (Ativan Intensol) 0.5 mg PRN Q6HRS PRN SL ANXIETY / AGITATION; Start 04/04/19 at 16:00; Stop 04/04/19 at 19:31; Status DC Morphine Sulfate (Roxanol Conc) 5 mg PRN Q2HRS PRN PO/SL MODERATE PAIN OR DYSPNEA Last administered on 04/04/19at 16:41; Start 04/04/19 at 16:00; Stop 04/04/19 at 19:31; Status DC Tamsulosin HCl (Flomax) 0.4 mg DAILY PO Last administered on 04/07/19at 10:08; Start 04/05/19 at 09:00; Stop 04/07/19 at 11:59; Status DC Insulin Glargine (Lantus Syringe) 15 unit QHS SQ Last administered on 04/05/19at 21:38; Start 04/04/19 at 21:00; Stop 04/06/19 at 20:47; Status DC Pantoprazole Sodium (Protonix) 40 mg DAILYAC PO Last administered on 04/07/19at 10:07; Start 04/05/19 at 07:30; Stop 04/07/19 at 11:59; Status DC Atropine Sulfate (Isopto Atropine) 3 drop PRN Q3HRS PRN SL SECRETIONS; Start 04/04/19 at 19:30 Lorazepam (Ativan Intensol) 1 mg PRN Q4HRS PRN SL ANXIETY / AGITATION Last administered on 04/07/19at 03:20; Start 04/04/19 at 19:30; Stop 04/07/19 at 11:59; Status DC Morphine Sulfate (Roxanol Conc) 10 mg PRN Q2HRS PRN PO/SL MODERATE PAIN OR DYSPNEA Last administered on 04/08/19at 10:05; Start 04/04/19 at 19:30 Ondansetron HCl (Zofran Odt) 4 mg PRN Q4HRS PRN PO NAUSEA/VOMITING; Start 04/04/19 at 19:30 Morphine Sulfate (Morphine Sulfate) 2 mg PRN Q2HR PRN IV PAIN Last administered on 04/07/19 09:12; Start 04/04/19 at 19:30; Stop 04/07/19 at 12:03; Status DC Ondansetron HCl (Zofran) 4 mg PRN Q4HRS PRN IVP NAUSEA/VOMITING; Start 04/04/19 at 19:45 Insulin Glargine (Lantus Syringe) 15 unit QHS SQ Last administered on 04/07/19at 21:04; Start 04/06/19 at 21:00 Morphine Sulfate (Morphine Sulfate) 2 mg PRN Q2HR PRN IV MODERATE TO SEVERE PAIN Last administered on 04/08/19at 03:53; Start 04/07/19 at 12:00 Lorazepam (Ativan Inj) 2 mg PRN Q2HR PRN IVP ANXIETY / AGITATION Last administered on 04/08/19at 08:56; Start 04/07/19 at 12:00 Active Scripts Active Atropine Sulfate 2 Ml Drops 2 Drop SL PRN Q4HRS PRN 30 Days Furosemide 10 Mg/1 Ml Vial 40 Mg IVP PRN BID PRN 30 Days Lorazepam Intensol (Lorazepam) 2 Mg/1 Ml Oral.conc 0.5 Mg SL PRN Q6HRS PRN 30 Days Morphine Sulfate 100 Mg/5 Ml Solution 5 Mg PO/SL PRN Q2HRS PRN 30 Days Flomax (Tamsulosin Hcl) 0.4 Mg Cap.er.24h 1 Cap PO DAILY 30 Days Reported Lasix (Furosemide) 20 Mg Tablet 1 Tab PO DAILY 30 Days Duoneb 0.5-3(2.5) Mg/3 Ml (Albuterol/Ipratropium) 3 Ml Ampul.neb 3 Ml NEB PRN Q4HRS PRN Acetaminophen 325 Mg Tablet 2 Tab PO PRN Q4HRS PRN 24 Days Basaglar Kwikpen U-100 (Insulin Glargine,Hum.rec.anlog) 100 Unit/1 Ml Insuln.pen 15 Unit SQ HS Omeprazole 20 Mg Capsule.dr 20 Mg PO DAILY Vitals/I & O Vital Sign - Last 24 Hours 04/07/19 04/07/19 04/07/19 04/07/19 13:10 14:00 18:42 19:00 Temp 98.7 98.7 Pulse 88 Resp 28 B/P (MAP) 113/65 (81) Pulse Ox 92 93 92 91 O2 Delivery Nasal Cannula Nasal Cannula Nasal Cannula Nasal Cannula O2 Flow Rate 1.0 1.0 1.0 1.0 04/07/19 04/08/19 20:00 07:00 Temp 98.3 98.3 Pulse 109 Resp 30 B/P (MAP) 129/55 (79) Pulse Ox 93 O2 Delivery Nasal Cannula Nasal Cannula O2 Flow Rate 1.0 1.0 Intake and Output 04/07/19 04/07/19 04/08/19 15:00 23:00 07:00 Intake Total 350 ml 350 ml 350 ml Output Total 800 ml 200 ml Balance 350 ml -450 ml 150 ml Nutrition Consultation Dietary Evaluation: Recommendations by RD: Dietary education by RD Comments: Nutrition as appropriate per goals of care Expected Outcomes/Goals: Nutrition as appropriate per goals of hospice care Interpretation of weight loss: >7.5% in 3 months Malnutrition Findings: Food and Nutrition Intake (Mod: <75% est energy req 7days Body Fat Depletion (Non Severe: Mild Depletion Weight Status: Overweight ANASTASIA MURRELL MD Apr 08, 2019 10:39
--- NOTE | 2019-04-08 10:49 | NUR ---
PO lasix nonadmin d/t having IV ordered PRN. gave IV instead of crushing pill and administering via PEG tube
[2019-04-08] MEDS ORDERED: MORPHINE SULFATE 4 MG/ML VIAL. IV PRN (13:00)
--- NOTE | 2019-04-08 14:14 | NUR ---
pt supposed to be on glucerna 1.2. has 1.5 running. called dietary to get a bottle of 1.2 delivered.
--- NOTE | 2019-04-08 14:45 | NUR ---
pt passed. absence of heart and lung sounds verified by 2nd RN [place]. family in room. shaggy notified in addition to dr. 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
--- NOTE | 2019-04-08 15:17 | PDOC3 ---
Discharge Summary Date of Admission: Apr 04, 2019 Date of Discharge: Apr 08, 2019 Follow-Up: Other () Brief Hospital Course Mr. Aranda is a 73 old [sex] who presented with [ METASTATIC CANCER ON HOSPICE CARE] CONDITION AT DISCHARGE: / Discharge Medications Current Medications Acetaminophen (Tylenol) 650 mg PRN Q4HRS PRN PO MILD PAIN or FEVER; Start 04/04/19 at 16:00 Atropine Sulfate (Isopto Atropine) 2 drop PRN Q4HRS PRN SL SECRETIONS; Start 04/04/19 at 16:00; Stop 04/04/19 at 19:31; Status DC Furosemide (Lasix) 40 mg PRN BID PRN IVP shortness of breath Last administered on 04/08/19at 08:07; Start 04/04/19 at 16:00 Furosemide (Lasix) 20 mg DAILY PO Last administered on 04/07/19at 10:07; Start 04/05/19 at 09:00 Albuterol Sulfate (Ventolin Neb Soln) 2.5 mg PRN Q4HRS PRN NEB SHORTNESS OF BREATH; Start 04/04/19 at 16:15 Lorazepam (Ativan Intensol) 0.5 mg PRN Q6HRS PRN SL ANXIETY / AGITATION; Start 04/04/19 at 16:00; Stop 04/04/19 at 19:31; Status DC Morphine Sulfate (Roxanol Conc) 5 mg PRN Q2HRS PRN PO/SL MODERATE PAIN OR DYSPNEA Last administered on 04/04/19at 16:41; Start 04/04/19 at 16:00; Stop 04/04/19 at 19:31; Status DC Tamsulosin HCl (Flomax) 0.4 mg DAILY PO Last administered on 04/07/19at 10:08; Start 04/05/19 at 09:00; Stop 04/07/19 at 11:59; Status DC Insulin Glargine (Lantus Syringe) 15 unit QHS SQ Last administered on 04/05/19at 21:38; Start 04/04/19 at 21:00; Stop 04/06/19 at 20:47; Status DC Pantoprazole Sodium (Protonix) 40 mg DAILYAC PO Last administered on 04/07/19at 10:07; Start 04/05/19 at 07:30; Stop 04/07/19 at 11:59; Status DC Atropine Sulfate (Isopto Atropine) 3 drop PRN Q3HRS PRN SL SECRETIONS; Start 04/04/19 at 19:30 Lorazepam (Ativan Intensol) 1 mg PRN Q4HRS PRN SL ANXIETY / AGITATION Last administered on 04/07/19 03:20; Start 04/04/19 at 19:30; Stop 04/07/19 at 11:59; Status DC Morphine Sulfate (Roxanol Conc) 10 mg PRN Q2HRS PRN PO/SL MODERATE PAIN OR DYSPNEA Last administered on 04/08/19at 12:07; Start 04/04/19 at 19:30 Ondansetron HCl (Zofran Odt) 4 mg PRN Q4HRS PRN PO NAUSEA/VOMITING; Start 04/04/19 at 19:30 Morphine Sulfate (Morphine Sulfate) 2 mg PRN Q2HR PRN IV PAIN Last administered on 04/07/19at 09:12; Start 04/04/19 at 19:30; Stop 04/07/19 at 12:03; Status DC Ondansetron HCl (Zofran) 4 mg PRN Q4HRS PRN IVP NAUSEA/VOMITING; Start 04/04/19 at 19:45 Insulin Glargine (Lantus Syringe) 15 unit QHS SQ Last administered on 04/07/19at 21:04; Start 04/06/19 at 21:00 Morphine Sulfate (Morphine Sulfate) 2 mg PRN Q2HR PRN IV MODERATE TO SEVERE PAIN Last administered on 04/08/19at 11:06; Start 04/07/19 at 12:00; Stop 04/08/19 at 12:53; Status DC Lorazepam (Ativan Inj) 2 mg PRN Q2HR PRN IVP ANXIETY / AGITATION Last administered on 04/08/19 11:04; Start 04/07/19 at 12:00 Morphine Sulfate (Morphine Sulfate) 4 mg PRN Q2HR PRN IV MODERATE TO SEVERE PAIN Last administered on 04/08/19at 12:59; Start 04/08/19 at 13:00 Active Scripts Active Atropine Sulfate 2 Ml Drops 2 Drop SL PRN Q4HRS PRN 30 Days Furosemide 10 Mg/1 Ml Vial 40 Mg IVP PRN BID PRN 30 Days Lorazepam Intensol (Lorazepam) 2 Mg/1 Ml Oral.conc 0.5 Mg SL PRN Q6HRS PRN 30 Days Morphine Sulfate 100 Mg/5 Ml Solution 5 Mg PO/SL PRN Q2HRS PRN 30 Days Flomax (Tamsulosin Hcl) 0.4 Mg Cap.er.24h 1 Cap PO DAILY 30 Days Reported Lasix (Furosemide) 20 Mg Tablet 1 Tab PO DAILY 30 Days Duoneb 0.5-3(2.5) Mg/3 Ml (Albuterol/Ipratropium) 3 Ml Ampul.neb 3 Ml NEB PRN Q4HRS PRN Acetaminophen 325 Mg Tablet 2 Tab PO PRN Q4HRS PRN 24 Days Basaglar Kwikpen U-100 (Insulin Glargine,Hum.rec.anlog) 100 Unit/1 Ml Insuln.pen 15 Unit SQ HS Omeprazole 20 Mg Capsule.dr 20 Mg PO DAILY Vital Signs Vital Signs Date Time Temp Pulse Resp B/P (MAP) Pulse Ox O2 Delivery O2 Flow Rate FiO2 04/08/19 08:00 Nasal Cannula 1.0 04/08/19 07:00 98.3 109 30 129/55 (79) 93 98.3 Labs Laboratory Tests Test 04/06/19 20:37 04/07/19 07:40 04/07/19 21:09 04/08/19 07:41 Glucose (Fingerstick) 158 mg/dL (70-99) 155 mg/dL (70-99) 156 mg/dL (70-99) 159 mg/dL (70-99) Test 04/08/19 11:07 Glucose (Fingerstick) 154 mg/dL (70-99) Laboratory Tests Test 04/07/19 21:09 04/08/19 07:41 04/08/19 11:07 Glucose (Fingerstick) 156 mg/dL (70-99) 159 mg/dL (70-99) 154 mg/dL (70-99) Allergies Allergies Coded Allergies Type Severity Reaction Last Updated Verified No Known Drug Allergies 03/18/19 No Disposition/Orders: Other () Patient Instructions D/C PLANNING 33 MIN ANASTASIA MURRELL MD Apr 08, 2019 15:17
--- NOTE | 2019-04-08 17:14 | NUR ---
pt moved to [facility] [place]. home contacted. shaggy MANNING assisted.
== END 2019-04-08 17:15 | disposition expired | DRG 375 ==
LOC: 2 NORTH 15:34 → 5 SOUTH 04-05 18:40
PROVIDERS: ADMIT Internal Medicine; ATTEND Internal Medicine
DX: C16.9 Malignant neoplasm of stomach, unspecified (principal); C79.9 Secondary malignant neoplasm of unspecified site; E11.9 Type 2 diabetes mellitus without complications; I10 Essential (primary) hypertension; I48.91 Unspecified atrial fibrillation; K21.9 Gastro-esophageal reflux disease without esophagitis; Z66 Do not resuscitate; Z82.49 Family history of ischemic heart disease and other diseases of the circulatory system; Z85.028 Personal history of other malignant neoplasm of stomach; M19.90 Unspecified osteoarthritis, unspecified site
CPT/HCPCS: 82962; 94760; J1815; J1940; J2060; J2270; G0378